=== PATIENT | male | born 1950 | race Caucasian/White ===

== ENCOUNTER → 2018-01-24 | Day surgery (SDC) | payer MEDICARE ==
[~2018-01-24] MED LIST: DEXILANT60 MG PO; FENTANYL CITRATE/PF 100MCG/2 ML INJ ONE; FLOMAX0.4 MG PO; LIDOCAINE HCL 2% LOCAL INJ 5 ML SDV VIAL INJ ONE; MIDAZOLAM HCL 2 MG/2 ML VIAL ONE; PROPOFOL IV EMULSION 10 MG/ML 50 ML VIAL IV ONE; ZOLPIDEM TARTRA10 MG PO
[2018-01-24 15:15] VITALS: BP 128/81
--- NOTE | 2018-01-24 15:39 | Operative Report ---
DATE OF PROCEDURE: January 24, 2018 REFERRING PHYSICIAN: Dr. Rikki Moreland. PROCEDURE PERFORMED: Esophagogastroduodenoscopy with esophageal dilatation and biopsies. INDICATIONS FOR EGD: Dysphagia, history of heartburn. MEDICATION: Patient was done under MAC. Please see anesthesiologist's note. PROCEDURE: With patient in the left lateral decubitus position, a flexible fiberoptic Olympus gastroscope was introduced into the esophagus under direct visualization without any difficulty. There were some patchy erythema noted in distal esophagus. Minute tongue of velvety-red mucosa was noted to extend proximally from the GE junction, that was biopsied to rule out Green's. There was a mild stricture noted at the GE junction that was dilated to a size 52-Nepali Lerma. The scope was then advanced with ease into the stomach traversing a small hiatal hernia. Mucosa overlying the antrum and the body revealed some patchy erythema and low-grade to moderate edema, and biopsies were obtained and sent to stain for H. pylori. Pylorus appeared to be of normal contour and shape, was intubated with ease, and the scope was advanced all the way to the 2nd portion of the duodenum. The scope was then withdrawn slowly. Mucosa overlying the proximal 2nd portion and the duodenal bulb appeared to be within normal limits. The scope was then withdrawn back into the stomach and retroflexed, and the mucosa overlying the fundus and the cardia appeared to be within normal limits. The scope was then straightened out and was subsequently withdrawn. Patient tolerated the procedure well. IMPRESSION 1. Distal esophagitis, mild. 2. Rule out Green's esophagus. 3. Esophageal stricture at gastroesophageal junction, dilated to size 52-Nepali Lerma. 4. Small sliding hiatal hernia. 5. Gastritis, biopsied. Biopsies sent to stain for Helicobacter pylori. PLAN: Follow up histology. Continue Dexilant 60 mg 1 p.o. a.c. b.i.d. Job#: [id number] LPA cc:RIKKI MORELAND MD
== END | disposition home or self-care (01) ==
LOC: OR 11:40
PROVIDERS: ATTEND Internal Medicine Gastroenterology
DX: K22.2 Esophageal obstruction (principal); K29.70 Gastritis, unspecified, without bleeding; K22.70 Barrett's esophagus without dysplasia; K20.9 Esophagitis, unspecified; K44.9 Diaphragmatic hernia without obstruction or gangrene; K21.9 Gastro-esophageal reflux disease without esophagitis; R49.9 Unspecified voice and resonance disorder; R05 Cough; I44.4 Left anterior fascicular block; Z01.810 Encounter for preprocedural cardiovascular examination; Z87.891 Personal history of nicotine dependence
CPT/HCPCS: 43239; 43450; 88305; 88312; 93005; J2001; J2250

== ENCOUNTER → 2018-07-25 | Day surgery (SDC) | payer MEDICARE ==
[2018-07-14 12:34] LABS: BASOPHILS # (AUTO) 0.1 (0.0-0.1); BASOPHILS % 0.6 % (0.0-1.0); EOSINOPHILS # (AUTO) 0.2 (0.0-0.4); EOSINOPHILS % 1.9 % (0.0-6.0); HEMOGLOBIN 14.5 g/dL (14.0-18.0); LYMPHOCYTES # (AUTO) 2.2 (1.0-3.2); LYMPHOCYTES % 22.6 % (18.0-39.1); MEAN CORPUSCULAR HGB CONC 35.4 g/dL (31-35); MEAN CORPUSCULAR VOLUME 93.4 fL (81-99); MONOCYTES # (AUTO) 0.5 (0.2-0.8); MONOCYTES % 4.7 % (4.4-11.3); NEUTROPHILS # (AUTO) 6.8 (2.1-6.9); NEUTROPHILS % 69.6 % (38.7-80.0); PLATELET COUNT 237 x10e3/uL (140-360); RED BLOOD COUNT 4.39 x10e6/uL (4.3-5.7); RED CELL DISTRIBUTION WIDTH 12.3 % (11.7-14.4)
[~2018-07-25] MED LIST changes: +ACETAMINOPHEN325 M1 PO; +FISH OIL 1,2001 EAC1 PO; +GLYCOPYRROLATE INJ 1MG/ 5 ML SYR ONE; -LIDOCAINE HCL 2% LOCAL INJ 5 ML SDV VIAL INJ ONE; +LUNESTA3 MG PO; +PROBIOTIC PO; -PROPOFOL IV EMULSION 10 MG/ML 50 ML VIAL IV ONE; +PROPOFOL IV EMULSION 10 MG/ML 50 ML VIAL ONE
--- OUTSIDE RECORDS SUMMARY | 2018-07-25 10:38 | XMS REPORT ---
Author Author Clifton Nieto Organization [employer] Address Unknown Phone Unavailable Care Team Providers Care Study Abroad Coordinator Name Role Phone Cilfton Nieto CP Unavailable Allergies, Adverse Reactions, Alerts Substance Reaction Event Type N.K.D.A. 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 95884038409 40 MG Active TAKE ONE CAPSULE BY MOUTH EVERY DAY Co Q [address] [facility] [address]68 60 MG Orally Once a day Active 1 capsule with a meal Analpram-HC [facility] [address]-04 1-2.5 % Rectal Three times a day Active 1 application to affected area as needed Zantac [facility] 62258057205 300 MG Once a day Active take 1 tablet by mouth at bedtime Tamsulosin HCl [facility] [address]-47 0.4 MG Orally Active not defined Viagra [facility] [address]-54 100 MG Active TAKE 1 TABLET BY MOUTH EVERY DAY NEEDED Esomeprazole Magnesium [facility] [address]-79 40 MG Orally Once a day Active [address] [facility] [address]-97 10 MG/20ML Intrathecal Active not defined Bromfed DM [facility] [address]-58 30-2-10 MG/5ML Orally every 6 hrs Mar 25, 2015 Active 10 ml as needed Meloxicam [facility] [address]-21 7.5 MG Orally Once a day Active [address] [facility] [address]-94 3 MG Orally once every night PRN Active 1 tablet Vital Signs Date/Time: November 24, 2016 BMI 27.40 Index Weight 191 lbs Height 70 in Cardiac Monitoring Heart Rate 95 /min Blood Pressure Diastolic 72 mm Hg Blood Pressure Systolic 110 mm Hg Results Name Result Date Reference Range Unit Abnormality Flag B12 Vitamin 1000MCG Summary Purpose [employer] Submission
--- OUTSIDE RECORDS SUMMARY | 2018-07-25 10:38 | XMS REPORT ---
Author Author Nina Recinos [facility] [employer] Address Unknown Phone Unavailable Care Team Providers Care Customer Retention Representative Name Role Phone Nina Recinos Unavailable Allergies, Adverse Reactions, Alerts Substance Reaction Event Type N.K.D.A. 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 Problem H/O asbestosis Z87.09 Active Problem Enlarged prostate N40.0 Active Problem History of ADHD Z86.59 Active Problem Pipe smoker F17.290 Active Medications Medication Code System Code Instructions Start Date End Date Status Dosage Esomeprazole Magnesium [facility] 34890804150 40 mg Orally Once a day Active 1 capsule Zantac [facility] [address]-56 300 MG Active TAKE 1 TABLET BY MOUTH AT BEDTIME Co Q 10 [facility] 89643104645 60 MG Orally Once a day Active 1 capsule with a meal Analpram-HC [facility] 97493409131 1-2.5 % Rectal Three times a day Active 1 application to affected area as needed Viagra [facility] 97338803451 100 MG Active TAKE 1 TABLET BY MOUTH EVERY DAY NEEDED Meloxicam [facility] 39271134968 7.5 MG Orally Once a day Active 1 tablet Baclofen [facility] 33323896968 10 MG/20ML Intrathecal Active not defined Tamsulosin HCl [facility] [address]-93 0.4 MG Orally Active not defined Bromfed DM [facility] 76767272451 30-2-10 MG/5ML Orally every 6 hrs Mar 25, 2015 Active 10 ml as needed Eszopiclone ND 65727143061 3 MG Orally once every night PRN Active 1 tablet Nexium [facility] 40480262132 40 MG Active TAKE ONE CAPSULE BY MOUTH EVERY DAY Results Name Result Date Reference Range Unit Abnormality Flag B12 Vitamin 1000MCG Summary Purpose [employer] Submission
--- OUTSIDE RECORDS SUMMARY | 2018-07-25 10:38 | XMS REPORT | Continuity of Care Document ---
Author Author [facility] Interface Address Unknown Phone Unavailable Problems Problem Status Onset Date Classification Date Reported Comments Source UNK Active 08/12/2015 [facility] Discharge Diagnosis: Urinary retention 08/10/2015 08/13/2015 [facility] Discharge Diagnosis: Mass of bladder 08/10/2015 08/13/2015 [facility] Discharge Diagnosis: Acute renal insufficiency 08/10/2015 08/13/2015 [facility] URINE COMPLICATIONS Active 08/10/2015 [facility] Low testosterone Active Problem 07/22/2018 [facility] Vitamin D deficiency Active Problem 07/22/2018 [facility] GERD Active Problem 07/22/2018 [facility] Essential hypertension Active Problem 07/22/2018 [facility] Hypogonadism in male Active Problem 07/22/2018 [facility] Green's esophagus with dysplasia Active Problem 07/22/2018 [facility] H/O asbestosis Active Problem 07/22/2018 [facility] Enlarged prostate Active Problem 07/22/2018 [facility] History of ADHD Active Problem 07/22/2018 [facility] Pipe smoker Active Problem 06/17/2018 [facility] Insomnia Active Diagnosis 05/21/2017 [facility] Dizzy Active Diagnosis 11/27/2016 [facility] Other fatigue Active Diagnosis 07/03/2017 [facility] Physical exam Active Diagnosis 11/27/2016 [facility] Other chronic pain Active Problem 07/22/2018 [facility] Insomnia, unspecified type Active Problem 07/22/2018 [facility] Anxiety Active Problem 07/22/2018 [facility] Body aches Active Diagnosis 02/10/2017 [facility] Right hand pain Active Diagnosis 02/10/2017 [facility] Acute pain of left shoulder Active Diagnosis 02/10/2017 [facility] Injury of head, initial encounter Active Diagnosis 02/10/2017 [facility] Bee allergy status Active Problem 07/22/2018 [facility] Chronic gastritis without bleeding, unspecified gastritis type Active Problem 07/22/2018 [facility] Hiatal hernia Active Problem 07/22/2018 [facility] Diverticulosis large intestine w/o perforation or abscess w/bleeding Active Problem 07/22/2018 [facility] Fatigue Active Diagnosis 10/14/2017 [facility] Hoarseness of voice Active Diagnosis 08/20/2017 [facility] Pain in left shoulder Active Diagnosis 07/03/2017 [facility] BMI 28.0-28.9,adult Active Diagnosis 07/03/2017 [facility] Bunion, right foot Active Diagnosis 10/12/2014 [facility] Keratotic lesion Active Diagnosis 10/12/2014 [facility] Bunion, left foot Active Diagnosis 10/12/2014 [facility] Acute nasopharyngitis Active Diagnosis 03/27/2015 [facility] Cough Active Diagnosis 07/21/2016 [facility] Hoarse Active Diagnosis 07/17/2018 [facility] Routine general medical examination at a health care facility Active Diagnosis 01/18/2018 [facility] Encounter for screening colonoscopy Active Diagnosis 01/18/2018 [facility] Neck mass Active Diagnosis 03/10/2016 [facility] URI with cough and congestion Active Diagnosis 07/17/2018 [facility] Acute non-recurrent maxillary sinusitis Active Diagnosis 07/21/2016 [facility] GERD (<span ID="[id number]">Confirmed</span>) Active Problem 08/13/2015 [facility] Hammer toe Active Problem 08/13/2015 [facility] Mass of foot Active Problem 08/13/2015 [facility] 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 [facility] ENLARGED PROSTATE WITH LOWER URINARY TRA Active [facility] Medications Medication Details Route Status Patient Instructions Ordering Provider Order Date Source Dexilant 1 capsule Orally Active 60 MG Orally once a day [facility] 01/25/2018 [facility] Dexilant 1 capsule Orally Active 60 MG Orally twice a day (bid) [facility] 01/25/2018 [facility] Dexilant 1 capsule Orally Active 60 MG Orally qd [facility] 11/24/2017 [facility] EPINEPHrine as directed Injection Active 0.3 MG/0.3ML Injection as directed [facility] 09/07/2017 [facility] Dexilant 1 capsule Orally Active 60 MG [facility] 08/11/2017 [facility] Carafate 1 tablet on an empty stomach before meals Orally Active 1 GM Orally four times a day PRN Trace 08/11/2017 [facility] HydrOXYzine HCl 1 tablet as needed Orally Active 10 mg Orally every 6-8 hrs for anxiety Trace 06/29/2017 [facility] Zanaflex 1 tablet as needed Orally Active 4 MG Orally once a day [facility] 02/09/2017 [facility] Cyclobenzaprine HCl 1 tablet as needed Orally Active 10 MG Orally once a day at night [facility] 02/08/2017 [facility] Naproxen 1 tablet as needed Orally Active 500 MG Orally twice a day Jorje 02/08/2017 [facility] Augmentin 1 tablet Orally Active 875-125 MG Orally every 12 hrs Jaime 07/16/2016 [facility] Zantac 1 tablet at bedtime Orally Active 300 MG Orally Once a day [place] 12/03/2015 [facility] tramadol hydrochloride 50 MG Oral Tablet 50 mg=1 tab, PO, BID, X 10 day, # 20 tab, 0 Refill(s) Active 08/10/2015 [facility] Tamsulosin hydrochloride 0.4 MG Oral Capsule [Flomax] 0.4 mg=1 cap, PO, Daily, # 10 cap, 0 Refill(s) Active 08/10/2015 [facility] ciprofloxacin 500 mg oral tablet 500 mg=1 tab, PO, Q12H, X 10 day, # 20 tab, 0 Refill(s) Active 08/10/2015 [facility] Morphine 4 mg, Route: IVP, Drug form: INJ, ONCE, Dosing Weight 86.364, kg, Priority: STAT, Start date: 08/10/15 12:55:00, Stop date: 08/10/15 12:55:00 Inactive 08/10/2015 [facility] Bromfed DM 10 ml as needed Orally Active 30-2-10 MG/5ML Orally every 6 hrs Jorje 03/25/[address] [facility] Bromfed DM 10 ml as needed Orally Active 30-2-10 MG/5ML Orally every 6 hrs Jorje 03/25/[address] [facility] Acetaminophen 325 MG / Hydrocodone Bitartrate 10 MG Oral Tablet [Nezperce 10/325] 1 tab, Route: PO, Drug Form: TAB, Dosing Weight 92.727, kg, ONCE, Start date: 11/15/14 9:30:00, Stop date: 11/15/14 9:30:00Notes: Do not exceed 4gm/day of acetaminophen. (Same as: Nezperce 325/10) Inactive 11/15/2014 [facility] Ondansetron 4 mg, Route: IVP, ONCE, Dosing Weight 92.727, kg, PRN Nausea & Vomiting, Start date: 11/15/14 9:30:00 Inactive 11/15/2014 [facility] Naloxone 0.04 mg, 0.1 mL, Route: IVP, Drug form: INJ, Q2MIN, Dosing Weight 92.727, kg, PRN Narcotic Reversal, Start date: 11/15/14 9:30:00, Duration: 8 doses or times, Stop date: Limited # of timesNotes: Same as Narcan Inactive 11/15/2014 [facility] Flumazenil 0.2 mg, 2 mL, Route: IVP, Drug form: INJ, PRN, Dosing Weight 92.727, kg, PRN Benzodiazepine Reversal, Initial dose, Start date: 11/15/14 9:30:00, Duration: 30 day, Stop date: 12/15/14 9:29:00Notes: ( Same as: Romazicon) Inactive 11/15/2014 [facility] Hydralazine 10 mg, 0.5 mL, Route: IVP, Drug form: INJ, Q20Min, Dosing Weight 92.727, kg, PRN Elevated BP, Start date: 11/15/14 9:30:00, Duration: 2 doses or times, Stop date: Limited # of timesNotes: (Same as: A presoline) Push over 5 minutes Inactive 11/15/2014 [facility] Hydromorphone 0.5 mg, 0.5 mL, Route: IVP, Drug form: INJ, Q5Min, Dosing Weight 92.727, kg, PRN Pain Score 7-10, Start date: 11/15/14 9:30:00, Duration: 4 doses or times, Stop date: Limited # of times Inactive 11/15/2014 [facility] Metoprolol 1 mg, 1 mL, Route: IVP, Drug form: INJ, Q5Min, Dosing Weight 92.727, kg, PRN Other -See Comment, Start date: 11/15/14 9:30:00, Duration: 5 doses or times, Stop date: Limited # of timesNotes: (Same as: Lopressor) Push over 2 minutes Inactive 11/15/2014 [facility] Oxycodone 5 mg, 1 tab, Route: PO, Drug form: TAB, Q4H, Dosing Weight 92.727, kg, PRN Pain Score 4-6, Start date: 11/15/14 9:30:00, Duration: 30 day, Stop date: 12/15/14 9:29:00Notes: (Same as: Roxicodone) Inactive 11/15/2014 [facility] Fentanyl 25 microgram, 0.5 mL, Route: IVP, Drug form: INJ, Q5Min, Dosing Weight 92.727, kg, PRN Pain Score 4-6, Start date: 11/15/14 9:30:00, Duration: 4 doses or times, Stop date: Limited # of timesNotes: (Same as: Sublimaze) Preservative free. Inactive 11/15/2014 [facility] Calcium Chloride 0.0014 MEQ/ML / Potassium Chloride 0.004 MEQ/ML / Sodium Chloride 0.103 MEQ/ML / Sodium Lactate 0.028 MEQ/ML Injectable Solution 1,000 mL, Rate: 25 ml/hr, Infuse over: 40 hr, Route: IV, Dosing Weight 92.727 kg, Total Volume: 1,000, Start date: 11/15/14 9:03:00, Duration: 30 day, Stop date: 12/15/14 9:02:00 Inactive 11/15/2014 [facility] Ancef 2 gm, Route: IVPB, ONCE, Dosing Weight 92.727, kg, Start date: 11/15/14 9:03:00, Duration: 1 doses or times, Stop date: 11/15/14 9:03:00 Inactive 11/15/2014 [facility] Nexium PO, Daily, 0 Refill(s) Active 11/14/2014 [facility] Viagra PO, PRN, 0 Refill(s) Active 11/14/2014 [facility] meloxicam PO, PRN, 0 Refill(s) Active 11/14/2014 [facility] Testosterone 0 Refill(s) Active 11/14/2014 [facility] Nexium 1 capsule Orally Active 40 mg Orally Once a day [facility] 10/31/[address] [facility] Eszopiclone 1 tablet Orally Active 3 MG Orally once every night PRN [facility] Nexium TAKE ONE CAPSULE BY MOUTH EVERY DAY NA Active 40 MG [facility] Co Q 10 1 capsule with a meal Orally Active 60 MG Orally Once a day [facility] Analpram-HC 1 application to affected area as needed Rectal Active 1-2.5 % Rectal Three times a day [facility] Zantac TAKE 1 TABLET BY MOUTH AT BEDTIME NA Active [address] [facility] Tamsulosin HCl not defined Orally Active 0.4 MG Orally [facility] Viagra TAKE 1 TABLET BY MOUTH EVERY DAY NEEDED NA Active [address] [facility] Esomeprazole Magnesium 1 capsule Orally Active 40 MG Orally Once a day [facility] Baclofen not defined Intrathecal Active 10 MG/20ML Intrathecal [facility] Meloxicam 1 tablet Orally Active 7.5 MG Orally Once a day [facility] Esomeprazole Magnesium 1 capsule Orally Active 40 mg Orally Once a day [facility] Zantac TAKE 1 TABLET BY MOUTH AT BEDTIME NA Active 300 MG [facility] Co Q 10 1 capsule with a meal Orally Active 60 MG Orally Once a day [facility] Analpram-HC 1 application to affected area as needed Rectal Active 1-2.5 % Rectal Three times a day [facility] Viagra TAKE 1 TABLET BY MOUTH EVERY DAY NEEDED NA Active 100 MG [facility] Meloxicam 1 tablet Orally Active 7.5 MG Orally Once a day [facility] Baclofen not defined Intrathecal Active 10 MG/20ML Intrathecal [facility] Eszopiclone 1 tablet Orally Active 3 MG Orally once every night PRN [facility] Carafate 1 tablet on an empty stomach before meals Orally Active 1 GM Orally four times a day PRN [facility] HydrOXYzine HCl 1 tablet as needed Orally Active 10 mg Orally every 6-8 hrs for anxiety [facility] Esomeprazole Magnesium 1 capsule Orally Active 40 mg Orally Once a day [facility] Testosterone Cypionate 1 ml Intramuscular Active 200 MG/ML Intramuscular [facility] Nexium 1 capsule Orally Active 40 mg Orally Once a day [facility] Tamsulosin HCl 1 capsule Orally Active 0.4 MG Orally Once a day [facility] Carafate 1 tablet on an empty stomach before meals Orally Active 1 GM Orally four times a day PRN [facility] Tamsulosin HCl Unknown Orally Active 0.[address] [facility] Testosterone Cypionate 1 ml Intramuscular Active 200 MG/ML Intramuscular every [address] [facility] Tamsulosin HCl Unknown Orally Active 0.4 MG Orally [facility] Allergies, Adverse Reactions, Alerts Substance Category Reaction Severity Reaction type Status Date Reported Comments Source N.K.D.A. Adverse Reaction Info Not Available Adverse Reaction Active 07/09/[address] [facility] Immunizations Immunization Date Given Site Status Last Updated Comments Source Results Order Name Results Value Reference Range Date Interpretation Comments Source ELECTROLYTES Potassium Lvl 4.0 meq/L 3.5 - 5.1 08/10/2015 [facility] ELECTROLYTES Chloride Lvl 101 meq/L 95 - 109 08/10/2015 [facility] ELECTROLYTES CO2 27 meq/L 24 - 32 08/10/2015 [facility] ELECTROLYTES Sodium Lvl 138 meq/L 135 - 145 08/10/2015 [facility] ELECTROLYTES Calcium Lvl 9.1 mg/dL 8.5 - 10.5 08/10/2015 [facility] ELECTROLYTES eGFR 39 mL/min/1.73m2 08/10/2015 Result Comment: The eGFR is calculated using the CKD-EPI formula. In most young, healthy individuals the eGFR will be >90 mL/min/1.73m2. The eGFR declines with age. An eGFR of 60-89 may be normal in some populations, particularly the elderly, for whom the CKD-EPI formula has not been extensively validated. Use of the eGFR is not recommended in the following populations: Individuals with unstable creatinine concentrations, including patients and those with serious co-morbid conditions. Patients with extremes in muscle mass or diet. The data above are obtained from the National Kidney Disease Education Program (NKDEP) which additionally recommends that when the eGFR is used in patients with extremes of body mass index for purposes of drug dosing, the eGFR should be multiplied by the estimated BMI. [facility] ELECTROLYTES Glucose Lvl 114 mg/dL 70 - 99 08/10/2015 [facility] ELECTROLYTES BUN 11 mg/dL 7 - 22 08/10/2015 [facility] Creatinine Lvl 1.77 mg/dL 0.50 - 1.40 08/10/2015 [facility] ELECTROLYTES AGAP 14.0 meq/L 10.0 - 20.0 08/10/2015 [facility] HEMATOLOGY Lymphocytes # 1.1 K/CMM 1.0 - 5.5 08/10/[address] [facility] Segs-Bands # 8.8 K/CMM 1.5 - 8.1 08/10/[address] [facility] Eosinophils # 0.3 K/CMM 0.0 - 0.5 08/10/2015 [facility] HEMATOLOGY Basophils 0.3 % 0.0 - 1.0 08/10/2015 [facility] HEMATOLOGY Segs 80.7 % 45.0 - 75.0 08/10/2015 [facility] HEMATOLOGY Monocytes # 0.7 K/CMM 0.0 - 0.8 08/10/[address] [facility] Lymphocytes 10.4 % 20.0 - 40.0 08/10/2015 [facility] HEMATOLOGY Monocytes 6.1 % 2.0 - 12.0 08/10/2015 [facility] HEMATOLOGY Eosinophils 2.5 % 0.0 - 4.0 08/10/2015 [facility] HEMATOLOGY Platelet 177 K/CMM 133 - 450 08/10/2015 [facility] HEMATOLOGY MPV 8.6 fL 7.4 - 10.4 08/10/2015 [facility] HEMATOLOGY MCHC 34.6 g/dL 32.0 - 36.0 08/10/2015 [facility] HEMATOLOGY RDW 12.3 % 11.5 - 14.5 08/10/2015 [facility] HEMATOLOGY Hgb 14.7 g/dL 14.0 - 18.0 08/10/2015 [facility] HEMATOLOGY Hct 42.5 % 42.0 - 54.0 08/10/2015 [facility] HEMATOLOGY MCV 96.2 fL 80.0 - 94.0 08/10/2015 [facility] HEMATOLOGY WBC 10.9 K/CMM 3.7 - 10.4 08/10/2015 [facility] HEMATOLOGY RBC 4.41 M/CMM 4.70 - 6.10 08/10/[address] [facility] MCH 33.3 pg 27.0 - 31.0 08/10/2015 [facility] URINE AND STOOL UA Sq Epi None Seen 08/10/2015 [facility] URINE AND STOOL UA Urobilinogen <=1.0 mg/dL 0.1 - 1.0 08/10/2015 [facility] URINE AND STOOL UA Color Ltyellow 08/10/2015 [facility] URINE AND STOOL UA Mucus Few /LPF None Seen /LPF 08/10/2015 [facility] URINE AND STOOL UA RBC 5 /HPF 0 - 2 08/10/2015 [facility] URINE AND STOOL UA Spec Grav 1.006 <=1.030 08/10/2015 [facility] URINE AND STOOL UA Turbidity Clear (08/10/15 9:28 AM) Clear 08/10/2015 [facility] URINE AND STOOL UA Leuk Est Negative (08/10/15 9:28 AM) Negative 08/10/2015 [facility] URINE AND STOOL UA Nitrite Negative (08/10/15 9:28 AM) Negative 08/10/2015 [facility] URINE AND STOOL UA Blood Moderate *ABN* (08/10/15 9:28 AM) Negative 08/10/2015 [facility] URINE AND STOOL UA WBC null 0 - 5 08/10/2015 [facility] URINE AND STOOL UA Ketones Trace mg/dL Negative mg/dL 08/10/2015 [facility] URINE AND STOOL UA Glucose Negative mg/dL Negative mg/dL 08/10/2015 [facility] URINE AND STOOL UA Protein Negative mg/dL Negative mg/dL 08/10/2015 [facility] URINE AND STOOL UA pH 7.0 5.0 - 8.0 08/10/2015 [facility] URINE AND STOOL UA Bili Negative *NA* (08/10/15 9:28 AM) Negative 08/10/2015 [facility] Abdomen 2 views DX Abdomen 2 views DX Abdomen one view: The gas pattern is within normal limits. There is no evidence of pneumoperitoneum. Phleboliths are seen in the pelvis. It would be difficult to completely rule out distal ureteral stones. There are no other significant calcifications. There are no significant osseous abnormalities. IMPRESSION: No acute radiographic abnormality of the abdomen. [id number] 2 views 08/10/2015 - - Read by: Cuba Guaman MD Dictated Date/time: 08/10/15 11:21 Electronically Signed by: Cuba Guaman MD 08/10/15 11:22 FINAL REPORT [facility] Bladder US Bladder US BLADDER ULTRASOUND: The bladder is distended with approximately 865 mL volume. The bladder wall is thin without significant mural thickening. There is a 3.9 cm intraluminal polypoid mass involving the right lateral posterior wall. No other intraluminal filling defects are demonstrated. The prostate is not visualized. IMPRESSION: 1. Bladder distention. 2. Polypoid mass in the bladder. Transitional cell carcinoma is the most likely etiology. Cystoscopic evaluation is recommended if this is not a previously known finding. SL 13 08/10/2015 - - Read by: Cuba Guaman MD Dictated Date/time: 08/10/15 10:22 Electronically Signed by: Cuba Guaman MD 08/10/15 10:27 FINAL REPORT [facility] Vital Signs Vital Sign Value Date Comments Source Weight 189 07/09/2018 [facility] Height 70 07/09/2018 [facility] Temperature Oral (F) 98.1 F 07/09/2018 [facility] Heart Rate 68 07/09/2018 [facility] Diastolic (mm Hg) 60 07/09/2018 [facility] Systolic (mm Hg) 120 07/09/2018 [facility] Weight 193 01/12/2018 [facility] Height 70 01/12/2018 [facility] Heart Rate 77 01/12/2018 [facility] Diastolic (mm Hg) 68 01/12/2018 [facility] Systolic (mm Hg) 120 01/12/2018 [facility] Weight 193 09/07/2017 [facility] Height 70 09/07/2017 [facility] Heart Rate 76 09/07/2017 [facility] Diastolic (mm Hg) 70 09/07/2017 [facility] Systolic (mm Hg) 110 09/07/2017 [facility] Weight 192 08/11/2017 [facility] Height 70 08/11/2017 [facility] Heart Rate 68 08/11/2017 [facility] Diastolic (mm Hg) 74 08/11/2017 [facility] Systolic (mm Hg) 118 08/11/2017 [facility] Weight 197 06/29/2017 [facility] Height 70 06/29/2017 [facility] Heart Rate 74 06/29/2017 [facility] Diastolic (mm Hg) 80 06/29/2017 [facility] Systolic (mm Hg) 120 06/29/2017 [facility] Weight 193 02/08/2017 [facility] Height 70 02/08/2017 [facility] Heart Rate 78 02/08/2017 [facility] Diastolic (mm Hg) 94 02/08/2017 [facility] Systolic (mm Hg) 142 02/08/2017 [facility] Weight 191 11/24/2016 [facility] Height 70 11/24/2016 [facility] Heart Rate 95 11/24/2016 [facility] Diastolic (mm Hg) 72 11/24/2016 [facility] Systolic (mm Hg) 110 11/24/2016 [facility] Weight 194 07/16/2016 [facility] Height 70 07/16/2016 [facility] Heart Rate 78 07/16/2016 [facility] Diastolic (mm Hg) 78 07/16/2016 [facility] Systolic (mm Hg) 144 07/16/2016 [facility] Weight 195 03/05/2016 [facility] Height 70 03/05/2016 [facility] Heart Rate 71 03/05/2016 [facility] Diastolic (mm Hg) 70 03/05/2016 [facility] Systolic (mm Hg) 115 03/05/2016 [facility] Weight 192 12/03/2015 [facility] Height 70 12/03/2015 [facility] Diastolic (mm Hg) 72 12/03/2015 [facility] Systolic (mm Hg) 110 12/03/2015 [facility] Respitory Rate 16 08/10/2015 [facility] Heart Rate 98 08/10/2015 [facility] Temperature Oral (F) 98.2 F 08/10/2015 [facility] Systolic (mm Hg) 144 08/10/2015 [facility] Diastolic (mm Hg) 92 08/10/2015 [facility] Systolic (mm Hg) 165 08/10/2015 [facility] Diastolic (mm Hg) 99 08/10/2015 [facility] Respitory Rate 16 08/10/2015 [facility] Heart Rate 101 08/10/2015 [facility] Temperature Oral (F) 98.2 F 08/10/2015 [facility] Systolic (mm Hg) 157 08/10/2015 [facility] Diastolic (mm Hg) 106 08/10/2015 [facility] Respitory Rate 16 08/10/2015 [facility] Heart Rate 117 08/10/2015 [facility] BMI Calculated 26.56 08/10/2015 [facility] Weight 86.364 08/10/2015 [facility] Height 180.34 cm 08/10/2015 [facility] Weight 198 03/25/2015 [facility] Height 70 03/25/2015 [facility] Temperature Oral (F) 98.5 F 03/25/2015 [facility] Heart Rate 72 03/25/2015 [facility] Diastolic (mm Hg) 70 03/25/2015 [facility] Systolic (mm Hg) 122 03/25/2015 [facility] Systolic (mm Hg) 110 11/15/2014 [facility] Diastolic (mm Hg) 70 11/15/2014 [facility] Systolic (mm Hg) 115 11/15/2014 [facility] Diastolic (mm Hg) 66 11/15/2014 [facility] Systolic (mm Hg) 94 11/15/2014 [facility] Diastolic (mm Hg) 54 11/15/2014 [facility] Respitory Rate 13 11/15/2014 [facility] Respitory Rate 16 11/15/2014 [facility] Respitory Rate 16 11/15/2014 [facility] Temperature Oral (F) 97.3 F 11/14/2014 [facility] Heart Rate 75 11/14/2014 [facility] BMI Calculated 28.51 11/14/2014 [facility] Weight 92.727 11/14/2014 [facility] Height 180.34 cm 11/14/2014 [facility] Weight 200 10/11/2014 [facility] Height 70 10/11/2014 [facility] Heart Rate 67 10/11/2014 [facility] Diastolic (mm Hg) 64 10/11/2014 [facility] Systolic (mm Hg) 118 10/11/2014 [facility] Encounters Location Location Details Encounter Type Encounter Number Reason For Visit Attending Provider ADM Date DC Date Status Source 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 PHYSICAL & Pre Op Clearance for foot surgery(Dr Ceballos) [id number] 10/31/2014 10/31/[address] [facility] PHYSICAL & Pre Op Clearance for foot surgery(Dr Ceballos) [id number] 10/31/2014 10/31/[address] [facility] PHYSICAL & Pre Op Clearance for foot surgery(Dr Ceballos) [id number] 10/31/2014 10/31/[address] [facility] PHYSICAL & Pre Op Clearance for foot surgery(Dr Ceballos) [id number] 10/31/2014 10/31/[address] [facility] PHYSICAL & Pre Op Clearance for foot surgery(Dr Ceballos) [id number] 10/31/2014 10/31/[address] [facility] PHYSICAL & Pre Op Clearance for foot surgery(Dr Ceballos) [id number] 10/31/2014 10/31/[address] [facility] PHYSICAL & Pre Op Clearance for foot surgery(Dr Ceballos) [id number] 10/31/2014 10/31/[address] [facility] PHYSICAL & Pre Op Clearance for foot surgery(Dr Ceballos) [id number] 10/31/2014 10/31/[address] [facility] PHYSICAL & Pre Op Clearance for foot surgery(Dr Ceballos) [id number] 10/31/2014 10/31/[address] [facility] PHYSICAL & Pre Op Clearance for foot surgery(Dr Ceballos) [id number] 10/31/2014 10/31/[address] [facility] PHYSICAL & Pre Op Clearance for foot surgery(Dr Ceballos) [id number] 10/31/2014 10/31/2014 [facility] PHYSICAL & Pre Op Clearance for foot surgery(Dr Ceballos) [id number] 10/31/2014 10/31/2014 [facility] Unknown [id number] 11/01/2014 11/01/2014 [facility] Unknown [id number] 11/01/2014 11/01/2014 [facility] Unknown [id number] 11/01/2014 11/01/2014 [facility] Unknown [id number] 11/01/2014 11/01/2014 [facility] Unknown [id number] 11/01/2014 11/01/2014 [facility] Unknown [id number] 11/01/2014 11/01/2014 [facility] Unknown [id number] 11/01/2014 11/01/2014 [facility] Unknown [id number] 11/01/2014 11/01/2014 [facility] Unknown [id number] 11/01/2014 11/01/2014 [facility] Unknown [id number] 11/01/2014 11/01/2014 [facility] Unknown [id number] 11/01/2014 11/01/2014 [facility] Unknown [id number] 11/01/2014 11/01/2014 [facility] [id number] [facility] 11/15/2014 11/15/2014 [facility] SICK [id number] 03/25/2015 03/25/2015 [facility] SICK [id number] 03/25/2015 03/25/2015 [facility] SICK [id number] 03/25/2015 03/25/2015 [facility] SICK [id number] 03/25/2015 03/25/2015 [facility] SICK [id number] 03/25/2015 03/25/2015 [facility] SICK [id number] 03/25/2015 03/25/2015 [facility] SICK [id number] 03/25/2015 03/25/2015 [facility] [id number] 03/25/2015 03/25/2015 [facility] SICK [id number] 03/25/2015 03/25/2015 [facility] [id number] 03/25/2015 03/25/2015 [facility] RAUDEL [id number] 03/25/2015 03/25/2015 [facility] [id number] 03/25/2015 03/25/2015 [facility] Refill [id number] 03/28/2015 03/28/2015 [facility] Refill [id number] 03/28/2015 03/28/2015 [facility] Refill [id number] 03/28/2015 03/28/2015 [facility] Refill [id number] 03/28/2015 03/28/2015 [facility] Refill [id number] 03/28/2015 03/28/2015 [facility] Refill [id number] 03/28/2015 03/28/2015 [facility] Refill [id number] 03/28/2015 03/28/2015 [facility] Refill [id number] 03/28/2015 03/28/2015 [facility] Refill [id number] 03/28/2015 03/28/2015 [facility] Refill [id number] 03/28/2015 03/28/2015 [facility] Refill [id number] 03/28/2015 03/28/2015 [facility] Unknown [id number] 04/10/2015 04/10/2015 [facility] Unknown [id number] 04/10/2015 04/10/2015 [facility] Unknown [id number] 04/10/2015 04/10/2015 [facility] Unknown [id number] 04/10/2015 04/10/2015 [facility] Unknown [id number] 04/10/2015 04/10/2015 [facility] Unknown [id number] 04/10/2015 04/10/2015 [facility] Unknown [id number] 04/10/2015 04/10/2015 [facility] Unknown [id number] 04/10/2015 04/10/2015 [facility] Unknown [id number] 04/10/2015 04/10/2015 [facility] Unknown [id number] 04/10/2015 04/10/2015 [facility] [id number] Charlie Smith 08/10/2015 08/10/2015 [facility] PHYSICAL [id number] 12/03/2015 12/03/2015 [facility] PHYSICAL [id number] 12/03/2015 12/03/2015 [facility] PHYSICAL [id number] 12/03/2015 12/03/2015 [facility] PHYSICAL [id number] 12/03/2015 12/03/2015 [facility] PHYSICAL [id number] 12/03/2015 12/03/2015 [facility] PHYSICAL [id number] 12/03/2015 12/03/2015 [facility] PHYSICAL [id number] 12/03/2015 12/03/2015 [facility] PHYSICAL [id number] 12/03/2015 12/03/2015 [facility] PHYSICAL [id number] 12/03/2015 12/03/2015 [facility] bump on the neck [id number] 03/05/2016 03/05/[address] [facility] bump on the neck [id number] 03/05/2016 03/05/[address] [facility] bump on the neck [id number] 03/05/2016 03/05/2016 [facility] bump on the neck [id number] 03/05/2016 03/05/2016 [facility] bump on the neck [id number] 03/05/2016 03/05/[address] [facility] bump on the neck [id number] 03/05/2016 03/05/2016 [facility] bump on the neck [id number] 03/05/2016 03/05/2016 [facility] bump on the neck [id number] 03/05/2016 03/05/2016 [facility] Unknown [id number] 03/09/2016 03/09/2016 [facility] Unknown [id number] 03/09/2016 03/09/2016 [facility] Unknown [id number] 03/09/2016 03/09/2016 [facility] Unknown [id number] 03/09/2016 03/09/2016 [facility] Unknown [id number] 03/09/2016 03/09/2016 [facility] Unknown [id number] 03/09/2016 03/09/2016 [facility] Unknown [id number] 03/09/2016 03/09/2016 [facility] Unknown [id number] 03/18/2016 03/18/2016 [facility] Unknown [id number] 03/18/2016 03/18/2016 [facility] Unknown [id number] 03/18/2016 03/18/2016 [facility] Unknown [id number] 03/18/2016 03/18/2016 [facility] Unknown [id number] 03/18/2016 03/18/2016 [facility] Unknown [id number] 03/18/2016 03/18/2016 [facility] Refill [id number] 05/01/2016 05/01/2016 [facility] Refill [id number] 05/01/2016 05/01/2016 [facility] Refill [id number] 05/01/2016 05/01/2016 [facility] Refill [id number] 05/01/2016 05/01/2016 [facility] Refill [id number] 05/01/2016 05/01/2016 [facility] RF [id number] 06/10/2016 06/10/2016 [facility] RF [id number] 06/10/2016 06/10/2016 [facility] RF [id number] 06/10/2016 06/10/2016 [facility] RF [id number] 06/10/2016 06/10/2016 [facility] Unknown [id number] 06/12/2016 06/12/2016 [facility] Unknown [id number] 06/12/2016 06/12/2016 [facility] Unknown [id number] 06/12/2016 06/12/2016 [facility] Unknown [id number] 07/14/2016 07/14/2016 [facility] Unknown [id number] 07/14/2016 07/14/2016 [facility] sinus infection [id number] 07/16/2016 07/16/[address] [facility] Procedures Procedure Code Date Perfomer Comments Source Cervical spinal fusion<sup>1</sup> 89539581 1999 [facility] Foot joint [place]80476 [place] [facility] 14891295 [place] Prostatectomy 00055397 [facility] Shoulder joint operations 442367846 [facility] Repair of rotator cuff of shoulder 28023130 [facility]
--- OUTSIDE RECORDS SUMMARY | 2018-07-25 10:38 | XMS REPORT ---
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
--- OUTSIDE RECORDS SUMMARY | 2018-07-25 10:38 | XMS REPORT ---
Author Author Clifton Nieto Organization e[employer]Works Address Unknown Phone Unavailable Care Team Providers Care Pattern Carrier Name Role Phone Clifton Nieto CP Unavailable Allergies No Known Allergies Problems Problem Type Condition Code Onset Dates Condition Status Assessment Insomnia G47.00 Active Problem Pipe smoker F17.290 Active Problem Low testosterone E29.1 Active Problem Hypogonadism in male E29.1 Active Problem Vitamin D deficiency E55.9 Active Problem Essential hypertension I10 Active Problem Enlarged prostate N40.0 Active Problem H/O asbestosis Z87.09 Active Problem GERD (gastroesophageal reflux disease) K21.9 Active Problem History of ADHD Z86.59 Active Medications Medication Code System Code Instructions Start Date End Date Status Dosage Eszopiclone [facility] [address]-49 3 MG Orally once every night PRN Active 1 tablet Results No Known Results Summary Purpose eClinicalWorks Submission
--- OUTSIDE RECORDS SUMMARY | 2018-07-25 10:38 | XMS REPORT ---
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
--- OUTSIDE RECORDS SUMMARY | 2018-07-25 10:38 | XMS REPORT ---
Author Author Clifton Nieto Organization [employer] Address Unknown Phone Unavailable Care Team Providers Care Wood Pole Treater Name Role Phone Clifton Nieto CP Unavailable [...] Start Date End Date Status Dosage Eszopiclone [facility] [address]-18 3 MG Orally once every night PRN Active 1 tablet Results No Known Results Summary Purpose eClinicalWorks Submission
--- OUTSIDE RECORDS SUMMARY | 2018-07-25 10:39 | XMS REPORT ---
Author Author Nina Recinos [facility] eClinical[employer] Address Unknown Phone Unavailable Care Team Providers Care Arc Furnace Operator Name Role Phone Nina Recinos Unavailable Allergies, [...] Instructions Start Date End Date Status Dosage Zantac [facility] [address]-74 300 MG Active TAKE 1 TABLET BY MOUTH AT BEDTIME Meloxicam [facility] 85726725983 7.5 MG Orally Once a day Active 1 tablet Co Q 10 [facility] 99713660010 60 MG Orally Once a day Active 1 capsule with a meal Analpram-HC [facility] 15364468628 1-2.5 % Rectal Three times a day Active 1 application to affected area as needed Esomeprazole Magnesium [facility] 66375768760 40 mg Orally Once a day Active 1 capsule Viagra [facility] 08267498012 100 MG Active TAKE 1 TABLET BY MOUTH EVERY DAY NEEDED Tamsulosin HCl [facility] [address]-77 0.4 MG Orally Active not defined Baclofen [facility] 86482208585 10 MG/20ML Intrathecal Active not defined Bromfed DM [facility] 78702238224 30-2-10 MG/5ML Orally every 6 hrs Mar 25, 2015 Active 10 ml as needed Eszopiclone [facility] 80013956101 3 MG Orally once every night PRN Active 1 tablet Nexium [facility] 62059849954 40 MG Active TAKE ONE CAPSULE BY MOUTH EVERY DAY Results Name Result Date Reference Range Unit Abnormality Flag ADMIN THER/PROPH/DIAG INJ, SC/IM B12 Vitamin 1000MCG Summary Purpose eClinicalWorks Submission
--- OUTSIDE RECORDS SUMMARY | 2018-07-25 10:39 | XMS REPORT ---
Author Author Clifton Nieto Organization [employer] Address Unknown Phone Unavailable Care Team Providers Care Project Financial Analyst Name Role Phone Clifton Nieto CP Unavailable Allergies No Known Allergies Problems Problem Type Condition Code Onset Dates Condition Status Problem GERD (gastroesophageal reflux disease) K21.9 Active Problem Enlarged prostate N40.0 Active Problem Vitamin D deficiency E55.9 Active Problem Insomnia, unspecified type G47.00 Active Problem Other chronic pain G89.29 Active Problem Bee allergy status Z91.030 Active Problem Essential hypertension I10 Active Problem Hypogonadism in male E29.1 Active Problem Anxiety F41.9 Active Problem 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
--- OUTSIDE RECORDS SUMMARY | 2018-07-25 10:39 | XMS REPORT ---
Author Author Melanie Moreland [facility] eClinicalWorks Address Unknown Phone Unavailable Care Team Providers Care Plate Put In Worker Name Role Phone Melanie Moreland CP Unavailable Allergies No Known Allergies Problems Problem Type Condition Code Onset Dates Condition Status Problem GERD (gastroesophageal reflux disease) K21.9 Active Problem Enlarged prostate N40.0 Active Problem Vitamin D deficiency E55.9 Active Problem Insomnia, unspecified type G47.00 Active Problem Anxiety F41.9 Active Problem Bee allergy status Z91.030 Active Problem Essential hypertension I10 Active Problem Hypogonadism in male E29.1 Active Problem Other chronic pain G89.29 Active Problem 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
--- OUTSIDE RECORDS SUMMARY | 2018-07-25 10:39 | XMS REPORT ---
Author Author Melanie Moreland Organization [employer] Address Unknown Phone Unavailable Care Team Providers Care Client Care Manager Name Role Phone Melanie Moreland CP Unavailable [...] Date End Date Status Dosage Esomeprazole Magnesium [facility] 65965076608 40 mg Orally Once a day Active 1 capsule Results No Known Results Summary Purpose eClinicalWorks Submission
--- OUTSIDE RECORDS SUMMARY | 2018-07-25 10:39 | XMS REPORT ---
Author Author Clifton Nieto Organization [employer] Address Unknown Phone Unavailable Care Team Providers Care Freight Booker Name Role Phone Clifton Niteo CP Unavailable Allergies, Adverse Reactions, Alerts Substance Reaction Event Type N.K.D.A. 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 Active Problem Essential hypertension I10 Active Assessment Pain in left shoulder M25.512 Active Assessment Other chronic pain G89.29 Active Assessment GERD (gastroesophageal reflux disease) K21.9 Active Assessment BMI 28.0-28.9,adult Z68.28 Active Assessment Other fatigue R53.83 Active Problem Low testosterone E29.1 Active Assessment Insomnia, unspecified type G47.00 Active Problem GERD (gastroesophageal reflux disease) K21.9 Active Assessment Anxiety F41.9 Active Problem Vitamin D deficiency E55.9 Active Medications Medication Code System Code Instructions Start Date End Date Status Dosage Viagra ND 59636987428 100 MG Active TAKE 1 TABLET BY MOUTH EVERY DAY NEEDED HydrOXYzine HCl ND 97956985406 10 mg Orally every 6-8 hrs for anxiety Jun 29, 2017 Active 1 tablet as needed Zantac ND 34588744368 300 MG Active TAKE 1 TABLET BY MOUTH AT BEDTIME Nexium ND 58631641424 40 MG Active TAKE ONE CAPSULE BY MOUTH EVERY DAY Eszopiclone ND 50431512142 3 MG Orally once every night PRN Active 1 tablet Esomeprazole Magnesium ND 36956252031 40 mg Orally Once a day Active 1 capsule Vital Signs Date/Time: Jun 29, 2017 BMI 28.26 Index Weight 197 lbs Height 70 in Cardiac Monitoring Heart Rate 74 /min Blood Pressure Diastolic 80 mm Hg Blood Pressure Systolic 120 mm Hg Results No Known Results Summary Purpose eClinicalWorks Submission
--- OUTSIDE RECORDS SUMMARY | 2018-07-25 10:39 | XMS REPORT ---
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
--- OUTSIDE RECORDS SUMMARY | 2018-07-25 10:39 | XMS REPORT ---
Author Author Melanie Moreland Organization [employer] Address Unknown Phone Unavailable Care Team Providers Care Mill Feeder Name Role Phone Melanie Moreland CP Unavailable [...] Z86.59 Active Problem H/O asbestosis Z87.09 Active Assessment Fatigue R53.83 Active Problem Pipe smoker F17.290 Active Medications Medication Code System Code Instructions Start Date End Date Status Dosage Eszopiclone [facility] 84195723876 3 MG Orally once every night PRN Active 1 tablet Dexilant [facility] 77195825356 60 MG Orally Once a day August 11, 2017 Active 1 capsule Carafate [facility] 62372503711 1 GM Orally four times a day PRN Active 1 tablet on an empty stomach before meals Viagra [facility] 16918330249 100 MG Active TAKE 1 TABLET BY MOUTH EVERY DAY NEEDED Zantac [facility] 50939417742 300 MG Active TAKE 1 TABLET BY MOUTH AT BEDTIME EPINEPHrine ND 34259602733 0.3 MG/0.3ML Injection as directed September 07, 2017 Active as directed HydrOXYzine HCl ND 61101022092 10 mg Orally every 6-8 hrs for anxiety Active 1 tablet as needed Results Name Result Date Reference Range Unit Abnormality Flag B12 Vitamin 1000MCG Summary Purpose eClinicalWorks Submission
--- OUTSIDE RECORDS SUMMARY | 2018-07-25 10:39 | XMS REPORT ---
Author Author Melanie Moreland Organization [employer] Address Unknown Phone Unavailable Care Team Providers Care Maintenance Clerk Name Role Phone Melanie Moreland CP Unavailable [...]
--- OUTSIDE RECORDS SUMMARY | 2018-07-25 10:39 | XMS REPORT ---
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
--- OUTSIDE RECORDS SUMMARY | 2018-07-25 10:39 | XMS REPORT ---
Author Author Clifton Nieto Organization [employer] Address Unknown Phone Unavailable Care Team Providers Care Contamination Consultant Name Role Phone Clifton Nieto CP Unavailable Allergies, Adverse Reactions, Alerts Substance Reaction Event Type N.K.D.A. 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 Active Assessment URI with cough and congestion J06.9 Active Assessment 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 Active Assessment GERD (gastroesophageal reflux disease) K21.9 Active Problem Diverticulosis large intestine w/o perforation or abscess w/bleeding K57.31 Active Problem Low testosterone E29.1 Active Problem Chronic gastritis without bleeding, unspecified gastritis type K29.50 Active Problem History of ADHD Z86.59 Active Problem Hiatal hernia K44.9 Active Problem H/O asbestosis Z87.09 Active Medications Medication Code System Code Instructions Start Date End Date Status Dosage Tamsulosin HCl ND 03475104189 0.4 MG Orally Once a day Active 1 capsule Zantac ND 60725367177 300 MG Active TAKE 1 TABLET BY MOUTH AT BEDTIME Eszopiclone ND 23832160465 3 MG Orally once every night PRN Active 1 tablet Viagra ND 97416285393 100 MG Active TAKE 1 TABLET BY MOUTH EVERY DAY NEEDED Carafate ND 36594756564 1 GM Orally four times a day PRN Active 1 tablet on an empty stomach before meals Dexilant [facility] [address]-19 60 MG Orally twice a day (bid) Jan 25, 2018 Active 1 capsule EPINEPHrine [facility] 26049957058 0.3 MG/0.3ML Injection as directed September 07, 2017 Active as directed HydrOXYzine HCl [facility] 93944917318 10 mg Orally every 6-8 hrs for anxiety Active 1 tablet as needed Vital Signs Date/Time: Jul 09, 2018 BMI 27.12 Index Weight 189 lbs Height 70 in Temperature 98.1 F Cardiac Monitoring Heart Rate 68 /min Blood Pressure Diastolic 60 mm Hg Blood Pressure Systolic 120 mm Hg Results Name Result Date Reference Range Unit Abnormality Flag DECADRON 1MGx4 Summary Purpose eClinicalWorks Submission
--- OUTSIDE RECORDS SUMMARY | 2018-07-25 10:39 | XMS REPORT ---
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
--- OUTSIDE RECORDS SUMMARY | 2018-07-25 10:39 | XMS REPORT ---
Author Author Melanie Moreland [facility] eClinicalWorks Address Unknown Phone Unavailable Care Team Providers Care Drafting Clerk Name Role Phone Melanie Moreland CP [...]
--- OUTSIDE RECORDS SUMMARY | 2018-07-25 10:39 | XMS REPORT ---
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 Active Problem Low testosterone E29.1 Active Problem GERD (gastroesophageal reflux disease) K21.9 Active Assessment Hoarseness of voice R49.0 Active Problem Vitamin D deficiency E55.9 Active Medications Medication Code System Code Instructions Start Date End Date Status Dosage Eszopiclone [facility] 22447596517 3 MG Orally once every night PRN Active 1 tablet Zantac ND 48992642140 300 MG Active TAKE 1 TABLET BY MOUTH AT BEDTIME Nexium ND 64921872753 40 MG Inactive TAKE ONE CAPSULE BY MOUTH EVERY DAY Esomeprazole Magnesium ND 71374308540 40 mg Orally Once a day Inactive 1 capsule Carafate ND 99358614029 1 GM Orally four times a day PRN August 11, 2017 November 09, 2017 Active 1 tablet on an empty stomach before meals Dexilant [facility] 35113017420 60 MG Orally Once a day August 11, 2017 Active 1 capsule HydrOXYzine HCl ND 39500427127 10 mg Orally every 6-8 hrs for anxiety Jun 29, 2017 Active 1 tablet as needed Viagra ND 22010176156 100 MG Active TAKE 1 TABLET BY MOUTH EVERY DAY NEEDED Vital Signs Date/Time: August 11, 2017 BMI 27.55 Index Weight 192 lbs Height 70 in Cardiac Monitoring Heart Rate 68 /min Blood Pressure Diastolic 74 mm Hg Blood Pressure Systolic 118 mm Hg Results No Known Results Summary Purpose eClinicalWorks Submission
--- OUTSIDE RECORDS SUMMARY | 2018-07-25 10:39 | XMS REPORT ---
Author Author Clifton Nieto Organization eClinicalWorks Address Unknown Phone Unavailable Care Team Providers Care Shingle Weaver Name Role Phone Clifton Nieto CP Unavailable Allergies, Adverse Reactions, Alerts Substance Reaction Event Type N.K.D.A. Info Not Available Non Drug Allergy Problems Problem Type Condition Code Onset Dates Condition Status Assessment Vitamin D deficiency E55.9 Active Assessment Low testosterone E29.1 Active Assessment Enlarged prostate N40.0 Active Problem Pipe smoker F17.290 Active Assessment Insomnia, unspecified type G47.00 Active Problem H/O asbestosis Z87.09 Active Assessment History of ADHD Z86.59 Active Problem GERD (gastroesophageal reflux disease) K21.9 Active Problem Enlarged prostate N40.0 Active Problem Vitamin D deficiency E55.9 Active Problem Insomnia, unspecified type G47.00 Active Problem Other chronic pain G89.29 Active Assessment GERD (gastroesophageal reflux disease) K21.9 Active Assessment 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 Active Problem Bee allergy status Z91.030 Active Assessment Hoarse R49.0 Active Problem Essential hypertension I10 Active Problem Hypogonadism in male E29.1 Active Problem Anxiety F41.9 Active Problem 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 Active Assessment Routine general medical examination at a health care facility Z00.00 Active Problem Chronic gastritis without bleeding, unspecified gastritis type K29.50 Active Assessment Essential hypertension I10 Active Assessment Encounter for screening colonoscopy Z12.11 Active Problem Low testosterone E29.1 Active Problem History of ADHD Z86.59 Active Problem Hiatal hernia K44.9 Active Problem Diverticulosis large intestine w/o perforation or abscess w/bleeding K57.31 Active Medications Medication Code System Code Instructions Start Date End Date Status Dosage HydrOXYzine HCl [facility] 76347547417 10 mg Orally every 6-8 hrs for anxiety Active 1 tablet as needed Dexilant ND 48599254369 60 MG Orally qd November 24, 2017 Active 1 capsule Tamsulosin HCl ND 76143993783 0.4 MG Orally Once a day Active 1 capsule Viagra [facility] 81452880064 100 MG Active TAKE 1 TABLET BY MOUTH EVERY DAY NEEDED Carafate [facility] 19967258547 1 GM Orally four times a day PRN Active 1 tablet on an empty stomach before meals EPINEPHrine [facility] 81869357661 0.3 MG/0.3ML Injection as directed September 07, 2017 Active as directed Zantac [facility] 52395764290 300 MG Active TAKE 1 TABLET BY MOUTH AT BEDTIME Eszopiclone [facility] 58157529283 3 MG Orally once every night PRN Active 1 tablet Vital Signs Date/Time: Jan 12, 2018 BMI 27.69 Index Weight 193 lbs Height 70 in Cardiac Monitoring Heart Rate 77 /min Blood Pressure Diastolic 68 mm Hg Blood Pressure Systolic 120 mm Hg Results Name Result Date Reference Range Unit Abnormality Flag CBC With Differential/Platelet ----Lymphs 35 [id number] Not Estab. % ----Neutrophils 56 [id number] Not Estab. % ----Baso (Absolute) 0.1 [id number] 0.0-0.2 x10E3/uL ----Hemoglobin 15.2 19057280 13.0-17.7 g/dL ----Eos (Absolute) 0.2 [id number] 0.0-0.4 x10E3/uL ----Hematocrit 42.8 43102634 37.5-51.0 % ----Monocytes(Absolute) 0.3 [id number] 0.1-0.9 x10E3/uL ----MCV 94 78707489 79-97 fL ----Lymphs (Absolute) 2.5 [id number] 0.7-3.1 x10E3/uL ----MCH 33.5 [id number] 26.6-33.0 pg H ----Neutrophils (Absolute) 4.1 37287814 1.4-7.0 x10E3/uL ----MCHC 35.5 73655597 31.5-35.7 g/dL ----Immature Granulocytes 0 [id number] Not Estab. % ----Basos 1 [id number] Not Estab. % ----RDW 13.6 32332207 12.3-15.4 % ----Immature Grans (Abs) 0.0 [id number] 0.0-0.1 x10E3/uL ----WBC 7.3 46206171 3.4-10.8 x10E3/uL ----Platelets 220 90688710 150-379 x10E3/uL ----Eos 3 [id number] Not Estab. % ----RBC 4.54 [id number] 4.14-5.80 x10E6/uL ----Monocytes 5 [id number] Not Estab. % Prostate-Specific Ag, Serum ----Prostate Specific Ag, Serum 1.0 [id number] 0.0-4.0 ng/mL Urinalysis, Routine ----Occult Blood Negative [id number] Negative ----Ketones Negative [id number] Negative ----Glucose Negative 42374916 Negative ----Protein Negative [id number] Negative/Trace ----WBC Esterase Negative [id number] Negative ----Urobilinogen,Semi-Qn 0.2 97287161 0.2-1.0 mg/dL ----Bilirubin Negative [id number] Negative ----Microscopic Examination Comment [id number] ----Nitrite, Urine Negative [id number] Negative ----Specific [place] 1.014 54284501 1.005-1.030 ----pH 6.0 80106704 5.0-7.5 ----Urine-Color Yellow [id number] Yellow ----Appearance Clear [id number] Clear TSH ----TSH 1.480 [id number] 0.450-4.500 uIU/mL Comp. Metabolic Panel (14) ----Potassium 4.1 71025694 3.5-5.2 mmol/L ----Sodium 140 47931744 134-144 mmol/L ----BUN/Creatinine Ratio 9 [id number] 10-24 L ----eGFR If Africn Am 79 72084084 >59 mL/min/1.73 ----eGFR If NonAfricn Am 69 [id number] >59 mL/min/1.73 ----Creatinine 1.10 81073986 0.76-1.27 mg/dL ----BUN 10 32914829 8-27 mg/dL ----Glucose 98 23295654 65-99 mg/dL ----AST (SGOT) 18 20180113 0-40 IU/L ----Globulin, Total 2.3 20180113 1.5-4.5 g/dL ----ALT (SGPT) 14 20180113 0-44 IU/L ----A/G Ratio 2.0 20180113 1.2-2.2 ----Bilirubin, Total 0.4 20180113 0.0-1.2 mg/dL ----Alkaline Phosphatase 61 20180113 39-117 IU/L ----Carbon Dioxide, Total 27 20180113 20-29 mmol/L ----Calcium 10.0 20180113 8.6-10.2 mg/dL ----Protein, Total 6.9 20180113 6.0-8.5 g/dL ----Albumin 4.6 20180113 3.6-4.8 g/dL ----Chloride 100 20180113 96-106 mmol/L Summary Purpose eClinicalWorks Submission
--- OUTSIDE RECORDS SUMMARY | 2018-07-25 10:39 | XMS REPORT ---
Author Author Clifton Nieto Organization e[employer]Works Address Unknown Phone Unavailable Care Team Providers Care Curve Saw Operator Name Role Phone Clifton Nieto CP Unavailable [...] Active Problem Essential hypertension I10 Active Assessment Insomnia, unspecified type G47.00 Active Problem Low testosterone E29.1 Active Problem GERD (gastroesophageal reflux disease) K21.9 Active Problem Vitamin D deficiency E55.9 Active Medications Medication Code System Code Instructions Start Date End Date Status Dosage Eszopiclone [facility] 94727317537 3 MG Orally once every night PRN Active 1 tablet Results No Known Results Summary Purpose eClinicalWorks Submission
--- OUTSIDE RECORDS SUMMARY | 2018-07-25 10:39 | XMS REPORT ---
Author Author Melanie Moreland Organization [employer] Address Unknown Phone Unavailable Care Team Providers Care Stripper Latex Name Role Phone Melanie Moreland CP Unavailable [...] Instructions Start Date End Date Status Dosage Dexilant NDC 77279042733 60 MG Orally qd LAST REFILL, NEEDS PHYSICAL November 24, 2017 Active 1 capsule Results No Known Results Summary Purpose eClinicalWorks Submission
--- OUTSIDE RECORDS SUMMARY | 2018-07-25 10:39 | XMS REPORT ---
Author Author Nina Recinos [employer] Address Unknown Phone Unavailable Care Team Providers Care Director Patient Accounting Name Role Phone Nina Recinos Unavailable Allergies, [...] GERD (gastroesophageal reflux disease) K21.9 Active Assessment Right hand pain M79.641 Active Assessment Acute pain of left shoulder M25.512 Active Assessment Body aches R52 Active Assessment Injury of head, initial encounter S09.90XA Active Medications Medication Code System Code Instructions Start Date End Date Status Dosage Cyclobenzaprine HCl [facility] [address]-14 10 MG Orally once a day at night Feb 08, 2017 Feb 22, 2017 Active 1 tablet as needed Analpram-HC [facility]AM[facility] [address]-36 1-2.5 % Rectal Three times a day Active 1 application to affected area as needed Zantac [facility] 85985532308 300 MG Once a day Active take 1 tablet by mouth at bedtime Baclofen [facility] [address]-06 10 MG/20ML Intrathecal Active not defined Naproxen [facility] NAMED [facility] [address]-72 500 MG Orally twice a day Feb 08, 2017 Feb 22, 2017 Active 1 tablet as needed Viagra [facility] NAMED [facility] [address]-93 100 MG Active TAKE 1 TABLET BY MOUTH EVERY DAY NEEDED Bromfed DM [facility] NAMED [facility] [address]-17 30-2-10 MG/5ML Orally every 6 hrs Mar 25, 2015 Active 10 ml as needed Meloxicam [facility] [address]-24 7.5 MG Orally Once a day Active 1 tablet Nexium [facility] 45351004325 40 MG Active TAKE ONE CAPSULE BY MOUTH EVERY DAY Eszopiclone [facility]AM[facility] [address]-49 3 MG Orally once every night PRN Active 1 tablet Co Q 10 [facility] 46955-33266 60 MG Orally Once a day Active 1 capsule with a meal Esomeprazole Magnesium [facility]AMED [facility] [address]-62 40 MG Orally Once a day Active 1 capsule Tamsulosin HCl [facility] NAMED [facility] [address]-71 0.4 MG Orally Active not defined Vital Signs Date/Time: Feb 08, 2017 BMI 27.69 Index Weight 193 lbs Height 70 in Cardiac Monitoring Heart Rate 78 /min Blood Pressure Diastolic 94 mm Hg Blood Pressure Systolic 142 mm Hg Results No Known Results Summary Purpose eClinicalWorks Submission
--- OUTSIDE RECORDS SUMMARY | 2018-07-25 10:39 | XMS REPORT ---
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 Active Assessment Fatigue R53.83 Active Problem Low testosterone E29.1 Active Problem History of ADHD Z86.59 Active Assessment Bee allergy status Z91.030 Active Problem H/O asbestosis Z87.09 Active Assessment Essential hypertension I10 Active Problem Pipe smoker F17.290 Active Medications Medication Code System Code Instructions Start Date End Date Status Dosage Dexilant [facility] 03087883823 60 MG Orally Once a day August 11, 2017 Active 1 capsule Carafate [facility] 87350314344 1 GM Orally four times a day PRN August 11, 2017 November 09, 2017 Active 1 tablet on an empty stomach before meals HydrOXYzine HCl ND 06540832167 10 mg Orally every 6-8 hrs for anxiety Jun 29, 2017 Active 1 tablet as needed EPINEPHrine ND 14847867642 0.3 MG/0.3ML Injection as directed September 07, 2017 Active as directed Eszopiclone ND 04334378632 3 MG Orally once every night PRN Active 1 tablet Zantac ND 04857986899 300 MG Active TAKE 1 TABLET BY MOUTH AT BEDTIME Viagra ND 46873343431 100 MG Active TAKE 1 TABLET BY MOUTH EVERY DAY NEEDED Vital Signs Date/Time: September 07, 2017 BMI 27.69 Index Weight 193 lbs Height 70 in Cardiac Monitoring Heart Rate 76 /min Blood Pressure Diastolic 70 mm Hg Blood Pressure Systolic 110 mm Hg Results Name Result Date Reference Range Unit Abnormality Flag B12 Vitamin 1000MCG Summary Purpose eClinicalWorks Submission
--- OUTSIDE RECORDS SUMMARY | 2018-07-25 10:39 | XMS REPORT ---
Author Author Clifton Nieto Organization [employer] Address Unknown Phone Unavailable Care Team Providers Care Wireline Field Operator Name Role Phone Clifton Nieto CP [...] Start Date End Date Status Dosage Eszopiclone [facility] 31758980881 3 MG Orally once every night PRN Active 1 tablet Results No Known Results Summary Purpose eClinicalWorks Submission
--- OUTSIDE RECORDS SUMMARY | 2018-07-25 10:39 | XMS REPORT ---
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
--- OUTSIDE RECORDS SUMMARY | 2018-07-25 10:39 | XMS REPORT ---
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 Active Assessment Insomnia, unspecified type G47.00 Active Problem Chronic gastritis without bleeding, unspecified gastritis type K29.50 Active Problem Low testosterone E29.1 Active Problem History of ADHD Z86.59 Active Problem Hiatal hernia K44.9 Active Problem Pipe smoker F17.290 Active Problem Diverticulosis large intestine w/o perforation or abscess w/bleeding K57.31 Active Problem H/O asbestosis Z87.09 Active Medications Medication Code System Code Instructions Start Date End Date Status Dosage Eszopiclone [facility] 48465979862 3 MG Orally once every night PRN Active 1 tablet Results No Known Results Summary Purpose eClinicalWorks Submission
--- OUTSIDE RECORDS SUMMARY | 2018-07-25 10:39 | XMS REPORT ---
Author Author Clifton Nieto Organization [employer] Address Unknown Phone Unavailable Care Team Providers Care Plastic Surgeon Name Role Phone Clifton Nieto CP Unavailable [...]
--- OUTSIDE RECORDS SUMMARY | 2018-07-25 10:39 | XMS REPORT ---
Author Author Clifton Nieto Organization [employer]Works Address Unknown Phone Unavailable Care Team Providers Care Roll Forger Name Role Phone Clifton Nieto CP Unavailable [...] GERD (gastroesophageal reflux disease) K21.9 Active Problem Chronic gastritis without bleeding, unspecified gastritis type K29.50 Active Problem Low testosterone E29.1 Active Problem History of ADHD Z86.59 Active Problem Hiatal hernia K44.9 Active Problem Pipe smoker F17.290 Active Problem Diverticulosis large intestine w/o perforation or abscess w/bleeding K57.31 Active Problem H/O asbestosis Z87.09 Active Medications Medication Code System Code Instructions Start Date End Date Status Dosage Dexilant NDC 56588694186 60 MG Orally qd November 24, 2017 Inactive 1 capsule Dexilant NDC 84344755467 60 MG Orally twice a day (bid) Jan 25, 2018 Active 1 capsule Results No Known Results Summary Purpose eClinicalWorks Submission
--- OUTSIDE RECORDS SUMMARY | 2018-07-25 10:39 | XMS REPORT ---
Author Author Nina Recinos [facility] eClinicalWorks Address Unknown Phone Unavailable Care Team Providers Care Acidizer Water Well Name Role Phone Nina Recinos CP Unavailable Allergies No Known Allergies Problems [...]
--- OUTSIDE RECORDS SUMMARY | 2018-07-25 10:40 | XMS REPORT ---
Author Author Clifton Nieto Organization eClinicalWorks Address Unknown Phone Unavailable Care Team Providers Care Hearing Therapy Director Name Role Phone Clifton Nieto CP Unavailable Encounters Encounter Location Date SICK [facility] Mar 25, 2015 Refill [facility] Mar 28, 2015 Acid Extractor-foot pain [facility] October 11, 2014 Unknown [facility] November 01, 2014 PHYSICAL & Pre Op Clearance for foot surgery(Dr Ceballos) [facility] October 31, 2014 Problems Problem Type Condition ICD-9 Code Onset Dates Condition Status Problem Low testosterone E29.1 Active Medications Medication Code System Code Instructions Start Date End Date Status Dosage Bromfed DM [facility] [address]-21 30-2-10 MG/5ML Orally every 6 hrs Mar 25, 2015 Active 10 ml as needed Social History Social History Element Qualifiers Date Reported Last Bone Density: . not sure Mar 25, 2015 Last Colonoscopy: . 2013 Mar 25, 2015 children . 2 Mar 25, 2015 Tobacco Use: . Additional Findings: Tobacco User Pipe smoker, Are you a: current smoker Mar 25, 2015 Flu Vaccine: . no Mar 25, 2015 Use of recreational / street drugs? . Answer: No Mar 25, 2015 Do you have pets? . Status: Yes, Type: dog(s) Mar 25, 2015 Marital Status: . Mar 25, 2015 Caffeine intake? . Status: Yes, What type: Coffee, Tea, Soft Drinks Mar 25, 2015 Do you exercise? . Answer: Yes, Type: walking, running Mar 25, 2015 Do you drink alcohol? . Status: Yes, Type: Wine, Beer, Liquor, How often? Socially, How much? Socially Mar 25, 2015 Summary Purpose eClinicalWorks Submission
--- OUTSIDE RECORDS SUMMARY | 2018-07-25 10:40 | XMS REPORT | Summary of Care ---
Author Author [facility] Organization [facility] Address Unknown Phone Unavailable Encounter FERNANDO Reese(MAHESH) [id number] Date(s): 08/10/15 - 08/10/15 [facility] [address] [place] [address]- Discharge Diagnosis: Urinary retention Discharge Diagnosis: Mass of bladder Discharge Diagnosis: Acute renal insufficiency Discharge Disposition: Home Attending Physician: Charlie Smith MD Vital Signs 1 2 3 Most recent to oldest [Reference Range]: 180.34 cm (08/10/15 8:43 AM) Height 98.2 DegF (08/10/15 1:39 PM) 98.2 DegF (08/10/15 8:43 AM) Temperature Oral [96.4-99.1 DegF] 144/92 mmHg *HI* (08/10/15 1:39 PM) 165/99 mmHg *HI* (08/10/15 11:52 AM) 157/106 mmHg *HI* (08/10/15 8:43 AM) Blood Pressure [90-140/60-90 mmHg] 16 BRMIN (08/10/15 1:39 PM) 16 BRMIN (08/10/15 11:52 AM) 16 BRMIN (08/10/15 8:43 AM) Respiratory Rate [14-20 BRMIN] 98 bpm (08/10/15 1:39 PM) 101 bpm *HI* (08/10/15 11:52 AM) 117 bpm *HI* (08/10/15 8:43 AM) Peripheral Pulse Rate [60-100 bpm] 86.364 kg (08/10/15 8:43 AM) Weight 26.56 m2 (08/10/15 8:43 AM) Body Mass Index Problem List Condition Effective Dates Status Health Status Informant GERD Active (gastroesophageal reflux disease)(Confirmed) Hammer Active toe(Confirmed) Mass of Active foot(Confirmed) Allergies, Adverse Reactions, Alerts Substance Reaction Severity Status NKDA Active Medications ciprofloxacin 500 mg oral tablet 500 mg=1 tab, PO, Q12H, X 10 day, # 20 tab, 0 Refill(s) Start Date: 08/10/15 Stop Date: 08/20/15 Status: Ordered Flomax 0.4 mg oral capsule 0.4 mg=1 cap, PO, Daily, # 10 cap, 0 Refill(s) Start Date: 08/10/15 Stop Date: 08/20/15 Status: Ordered morphine Sulfate 4 mg, Route: IVP, Drug form: INJ, ONCE, Dosing Weight 86.364, kg, Priority: STAT , Start date: 08/10/15 12:55:00, Stop date: 08/10/15 12:55:00 Start Date: 08/10/15 Stop Date: 08/10/15 Status: Completed tramadol 50 mg oral tablet 50 mg=1 tab, PO, BID, X 10 day, # 20 tab, 0 Refill(s) Start Date: 08/10/15 Stop Date: 08/20/15 Status: Ordered Results ELECTROLYTES Most recent to 1 oldest [Reference Range]: Sodium Lvl [135-145 138 mEq/L mEq/L] (08/10/15 9:28 AM) Potassium Lvl 4.0 mEq/L [3.5-5.1 mEq/L] (08/10/15 9:28 AM) Chloride Lvl [95-109 101 mEq/L mEq/L] (08/10/15 9:28 AM) CO2 [24-32 mEq/L] 27 mEq/L (08/10/15 9:28 AM) AGAP [10.0-20.0 14.0 mEq/L mEq/L] (08/10/15 9:28 AM) CHEM PANEL Most recent to 1 oldest [Reference Range]: Creatinine Lvl 1.77 mg/dL [0.50-1.40 mg/dL] *HI* (08/10/15 9:28 AM) eGFR 39 mL/min/1.73m2 1 *NA* (08/10/15 9:28 AM) BUN [7-22 mg/dL] 11 mg/dL (08/10/15 9:28 AM) Glucose Lvl [70-99 114 mg/dL mg/dL] *HI* (08/10/15 9:28 AM) Calcium Lvl 9.1 mg/dL [8.5-10.5 mg/dL] (08/10/15 9:28 AM) 1Result Comment: The eGFR is calculated using the [...] from the National Kidney Disease Education Program ( NKDEP) which additionally recommends that when the eGFR is used in patients with extremes of body mass index for purposes of drug dosing, the eGFR should be mul tiplied by the estimated BMI. URINE AND STOOL Most recent to 1 oldest [Reference Range]: UA Turbidity [Clear] Clear (08/10/15 9:28 AM) UA Color Ltyellow *NA* (08/10/15 9:28 AM) UA pH [5.0-8.0] 7.0 (08/10/15 9:28 AM) UA Spec Grav 1.006 [<=1.030] (08/10/15 9:28 AM) UA Glucose [Negative Negative mg/dL mg/dL] *NA* (08/10/15 9:28 AM) UA Blood [Negative] Moderate *ABN* (08/10/15 9:28 AM) UA Ketones [Negative Trace mg/dL mg/dL] *ABN* (08/10/15 9:28 AM) UA Protein [Negative Negative mg/dL mg/dL] (08/10/15 9:28 AM) UA Urobilinogen <=1.0 mg/dL [0.1-1.0 mg/dL] *NA* (08/10/15 9:28 AM) UA Bili [Negative] Negative *NA* (08/10/15 9:28 AM) UA Leuk Est Negative [Negative] (08/10/15 9:28 AM) UA Nitrite Negative [Negative] (08/10/15 9:28 AM) UA WBC [0-5 /HPF] <1 /HPF (08/10/15 9:28 AM) UA RBC [0-2 /HPF] 5 /HPF *HI* (08/10/15 9:28 AM) UA Sq Epi None Seen *NA* (08/10/15 9:28 AM) UA Mucus [None Seen Few /LPF /LPF] *NA* (08/10/15 9:28 AM) HEMATOLOGY Most recent to 1 oldest [Reference Range]: WBC [3.7-10.4 K/CMM] 10.9 K/CMM *HI* (08/10/15 9:28 AM) RBC [4.70-6.10 4.41 M/CMM M/CMM] *LOW* (08/10/15 9:28 AM) Hgb [14.0-18.0 g/dL] 14.7 g/dL (08/10/15 9:28 AM) Hct [42.0-54.0 %] 42.5 % (08/10/15 9:28 AM) MCV [80.0-94.0 fL] 96.2 fL *HI* (08/10/15 9:28 AM) MCH [27.0-31.0 pg] 33.3 pg *HI* (08/10/15 9:28 AM) MCHC [32.0-36.0 34.6 g/dL g/dL] (08/10/15 9:28 AM) RDW [11.5-14.5 %] 12.3 % (08/10/15 9:28 AM) Platelet [133-450 177 K/CMM K/CMM] (08/10/15 9:28 AM) MPV [7.4-10.4 fL] 8.6 fL (08/10/15 9:28 AM) Segs [45.0-75.0 %] 80.7 % *HI* (08/10/15 9:28 AM) Lymphocytes 10.4 % [20.0-40.0 %] *LOW* (08/10/15 9:28 AM) Monocytes [2.0-12.0 6.1 % %] (08/10/15 9:28 AM) Eosinophils [0.0-4.0 2.5 % %] (08/10/15 9:28 AM) Basophils [0.0-1.0 0.3 % %] (08/10/15 9:28 AM) Segs-Bands # 8.8 K/CMM [1.5-8.1 K/CMM] *HI* (08/10/15 9:28 AM) Lymphocytes # 1.1 K/CMM [1.0-5.5 K/CMM] (08/10/15 9:28 AM) Monocytes # [0.0-0.8 0.7 K/CMM K/CMM] (08/10/15 9:28 AM) Eosinophils # 0.3 K/CMM [0.0-0.5 K/CMM] (08/10/15 9:28 AM) Immunizations No data available for this section Procedures Procedure Date Related Diagnosis Body Site Cervical spinal fusion1 Foot joint operations Gallbladder operation Prostatectomy Repair of rotator cuff of shoulder Shoulder joint operations 90074 Social History Social History Type Response Smoking Status Current every day smoker; Exposure to Tobacco Smoke None; Other Tobacco Frequency daily pipe smoker; Cigarette Smoking Last 365 Days No; Reg Smoking Cessation Counseling No Assessment and Plan No data available for this section
--- OUTSIDE RECORDS SUMMARY | 2018-07-25 10:40 | XMS REPORT ---
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 [facility] October 11, 2014 Unknown [facility] November 01, 2014 PHYSICAL & Pre Op Clearance for foot surgery(Dr Ceballos) [facility] October 31, 2014 Problems Problem Type Condition ICD-9 Code Onset Dates Condition Status Problem Low testosterone E29.1 Active Medications Medication Code System Code Instructions Start Date End Date Status Dosage Nexium [facility] [address]-95 40 mg Orally Once a day October 31, 2014 Active 1 capsule Social History Social History Element Qualifiers Date [...]
--- OUTSIDE RECORDS SUMMARY | 2018-07-25 10:40 | XMS REPORT | Summary of Care ---
Author Organization Unknown Address Unknown Phone Unavailable Encounter FERNANDO Reese(MAHESH) [id number] Date(s): 11/15/14 - 11/15/14 [facility] [address] [place] [address]- [phone] Discharge Disposition: Home Physician Attending: Minesh Ceballos DPM Physician_Referring: Minesh Ceballos DPM Vital Signs 1 2 3 Most recent to oldest [Reference Range]: 180.34 cm (11/14/14 3:06 PM) Height 97.3 DegF (11/14/14 3:06 PM) Temperature Oral [96.4-99.1 DegF] 110/70 mmHg (11/15/14 10:45 AM) 115/66 mmHg (11/15/14 10:30 AM) 94/54 mmHg (11/15/14 10:15 AM) Blood Pressure [90-140/60-90 mmHg] 13 BRMIN *LOW* (11/15/14 9:45 AM) 16 BRMIN (11/15/14 9:30 AM) 16 BRMIN (11/15/14 9:15 AM) Respiratory Rate [14-20 BRMIN] 75 bpm (11/14/14 3:06 PM) Peripheral Pulse Rate [60-100 bpm] 92.727 kg (11/14/14 3:06 PM) Weight 28.51 m2 (11/14/14 3:06 PM) Body Mass Index Problem List Condition Effective Dates Status Health Status Informant GERD Active (gastroesophageal reflux disease)(Confirmed) Hammer Active toe(Confirmed) Mass of Active foot(Confirmed) Allergies, Adverse Reactions, Alerts Substance Reaction Severity Status NKDA Active Medications Ancef 2 gm, Route: IVPB, ONCE, Dosing Weight 92.727, kg, Start date: 11/15/14 9:03:00, Duration: 1 doses or times, Stop date: 11/15/14 9:03:00 Start Date: 11/15/14 Stop Date: 11/15/14 Status: Completed fentaNYL 25 microgram, 0.5 mL, Route: IVP, Drug form: INJ, Q5Min, Dosing Weight 92.727, k g, PRN Pain Score 4-6, Start date: 11/15/14 9:30:00, Duration: 4 doses or times, Stop date: Limited # of times Notes: (Same as: Sublimaze) Preservative free. Start Date: 11/15/14 Stop Date: 11/15/14 Status: Discontinued flumazenil 0.2 mg, 2 mL, Route: IVP, Drug form: INJ, PRN, Dosing Weight 92.727, kg, PRN Lucho zodiazepine Reversal, Initial dose, Start date: 11/15/14 9:30:00, Duration: 30 d ay, Stop date: 12/15/14 9:29:00 Notes: (Same as: Romazicon) Start Date: 11/15/14 Stop Date: 11/15/14 Status: Discontinued hydrALAZINE 10 mg, 0.5 mL, Route: IVP, Drug form: INJ, Q20Min, Dosing Weight 92.727, kg, PRN Elevated BP, Start date: 11/15/14 9:30:00, Duration: 2 doses or times, Stop shan e: Limited # of times Notes: (Same as: Apresoline)Push over 5 minutes Start Date: 11/15/14 Stop Date: 11/15/14 Status: Discontinued hydromorphone 0.5 mg, 0.5 mL, Route: IVP, Drug form: INJ, Q5Min, Dosing Weight 92.727, kg, PRN Pain Score 7-10, Start date: 11/15/14 9:30:00, Duration: 4 doses or times, Stop date: Limited # of times Start Date: 11/15/14 Stop Date: 11/15/14 Status: Discontinued Lactated Ringers Injection IV 1000 mL 1,000 mL, Rate: 25 ml/hr, Infuse over: 40 hr, Route: IV, Dosing Weight 92.727 kg , Total Volume: 1,000, Start date: 11/15/14 9:03:00, Duration: 30 day, Stop date : 12/15/14 9:02:00 Start Date: 11/15/14 Stop Date: 11/15/14 Status: Discontinued meloxicam PO, PRN, 0 Refill(s) Start Date: 11/14/14 Status: Ordered metoprolol 1 mg, 1 mL, Route: IVP, Drug form: INJ, Q5Min, Dosing Weight 92.727, kg, PRN Oth er -See Comment, Start date: 11/15/14 9:30:00, Duration: 5 doses or times, Stop date: Limited # of times Notes: (Same as: Lopressor)Push over 2 minutes Start Date: 11/15/14 Stop Date: 11/15/14 Status: Discontinued naloxone 0.04 mg, 0.1 mL, Route: IVP, Drug form: INJ, Q2MIN, Dosing Weight 92.727, kg, ME N Narcotic Reversal, Start date: 11/15/14 9:30:00, Duration: 8 doses or times, S top date: Limited # of times Notes: Same as Narcan Start Date: 11/15/14 Stop Date: 11/15/14 Status: Discontinued NexIUM PO, Daily, 0 Refill(s) Start Date: 11/14/14 Status: Ordered [place] 10/325 oral tablet 1 tab, Route: PO, Drug Form: TAB, Dosing Weight 92.727, kg, ONCE, Start date: 9:30:00, Stop date: 11/15/14 9:30:00 Notes: Do not exceed 4gm/day of acetaminophen. (Same as: [place] 325/10) Start Date: 11/15/14 Stop Date: 11/15/14 Status: Ordered ondansetron 4 mg, Route: IVP, ONCE, Dosing Weight 92.727, kg, PRN Nausea & Vomiting, Start date: 11/15/14 9:30:00 Start Date: 11/15/14 Stop Date: 11/15/14 Status: Completed oxyCODONE 5 mg, 1 tab, Route: PO, Drug form: TAB, Q4H, Dosing Weight 92.727, kg, PRN Pain Score 4-6, Start date: 11/15/14 9:30:00, Duration: 30 day, Stop date: 12/15/14 9 :29:00 Notes: (Same as: Roxicodone) Start Date: 11/15/14 Stop Date: 11/15/14 Status: Discontinued testosterone 0 Refill(s) Start Date: 11/14/14 Status: Ordered Viagra PO, PRN, 0 Refill(s) Start Date: 11/14/14 Status: Ordered Results No data available for this section Immunizations No data available for this section Procedures Procedure Date Related Diagnosis Body Site Cervical spinal fusion1 Foot joint operations Gallbladder operation Prostatectomy Shoulder joint operations 95717 Social History Social History Type Response Smoking Status Current every day smoker; Exposure to Tobacco Smoke None; Other Tobacco Frequency daily pipe smoker; Cigarette Smoking Last 365 Days No; Reg Smoking Cessation Counseling No Assessment and Plan No data available for this section
--- OUTSIDE RECORDS SUMMARY | 2018-07-25 10:40 | XMS REPORT ---
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 [facility] October 11, 2014 Refill [facility] May 01, 2016 Unknown [facility] November 01, 2014 PHYSICAL & Pre Op Clearance for foot surgery(Dr Ceballos) [facility] October 31, 2014 Unknown [facility] Mar 18, 2016 bump on the neck [facility] Mar 05, 2016 Unknown [facility] Mar 09, 2016 Problems Problem Type Condition ICD-9 Code Onset Dates Condition Status Problem Low testosterone E29.1 Active Assessment Insomnia G47.00 Active Problem Vitamin D deficiency E55.9 Active Problem GERD (gastroesophageal reflux disease) K21.9 Active Problem Hypogonadism in male E29.1 Active Problem H/O asbestosis Z87.09 Active Problem Pipe smoker F17.290 Active Problem History of ADHD Z86.59 Active Problem Enlarged prostate N40.0 Active Medications Medication Code System Code Instructions Start Date End Date Status Dos[facility] [address]-58 3 MG Orally Once a day Active 1 tablet immediately before bedtime Social History Social History Element Qualifiers Date Reported Last Bone Density: . not sure Mar 05, 2016 Last Colonoscopy: . 2012Mar 05, 2016 children . 2 Mar 05, 2016 Tobacco Use: . Additional Findings: Tobacco User Pipe smoker Mar 05, 2016 Flu Vaccine: . no Mar 05, 2016 Use of recreational / street drugs? . Answer: No Mar 05, 2016 Do you have pets? . Status: Yes, Type: dog(s) Mar 05, 2016 Marital Status: . Mar 05, 2016 Caffeine intake? . Status: Yes, What type: Coffee, Tea, Soft Drinks Mar 05, 2016 Do you exercise? . Answer: Yes, Type: walking, running Mar 05, 2016 Do you drink alcohol? . Status: Yes, Type: Wine, Beer, Liquor, How often? Socially, How much? Socially Mar 05, 2016 Summary Purpose eClinicalWorks Submission
--- OUTSIDE RECORDS SUMMARY | 2018-07-25 10:40 | XMS REPORT ---
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 [facility] October 11, 2014 Unknown [facility] November 01, 2014 PHYSICAL & Pre Op Clearance for foot surgery(Dr Ceballos) [facility] October 31, 2014 Unknown [facility] Mar 18, 2016 bump on the neck [facility] Mar 05, 2016 Unknown [facility] Mar 09, 2016 Unknown [facility] Jun 12, 2016 Unknown [facility] Jul 14, 2016 Refill [facility] May 01, 2016 RF [facility] Jun 10, 2016 Problems Problem Type Condition ICD-9 Code [...] Start Date End Date Status Dosage Eszopiclone [facility] [address]-41 3 MG Orally once every night PRN Active 1 tablet Social History Social History Element Qualifiers Date Reported Last Bone Density: . not sure Mar 05, 2016 Last Colonoscopy: . 2013 Mar 05, 2016 children . 2 Mar 05, [...]
--- OUTSIDE RECORDS SUMMARY | 2018-07-25 10:40 | XMS REPORT ---
Author Clifton Watson Organization [employer] Address Unknown Phone Unavailable Care Team Providers Care Commercial Decorator Name Role Phone Clifton Nieto CP Unavailable Allergies, Adverse Reactions, Alerts Substance Reaction Event Type N.K.D.A. 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 [facility] October 11, 2014 Unknown [facility] November 01, 2014 PHYSICAL & Pre Op Clearance for foot surgery(Dr Ceballos) [facility] October 31, 2014 Problems Problem Type Condition ICD-9 Code Onset Dates Condition Status Assessment Acute nasopharyngitis J00 Active Assessment Cough R05 Active Problem Low testosterone E29.1 Active Assessment Low testosterone E29.1 Active Medications Medication Code System Code Instructions Start Date End Date Status Dosage Analpram-HC [facility] [address]-96 1-2.5 % Rectal Three times a day Active 1 application to affected area as needed Meloxicam [facility] [address]-18 7.5 MG Orally Once a day Active 1 tablet Nexium [facility] [address]-10 40 mg Orally Once a day October 31, 2014 Active 1 capsule Bromfed DM [facility] [address]-74 30-2-10 MG/5ML Orally every 6 hrs Mar 25, 2015 Active 10 ml as needed Testosterone Cypionate [facility] [address]-07 200 MG/ML Intramuscular Active 1 ml Baclofen [facility] [address]-61 10 MG/20ML Intrathecal Active Unknown Nexium [facility] [address]-61 40 MG Orally Once a day Active 1 capsule Viagra [facility] [address]-90 100 MG Orally Once a day Active 1 tablet as needed Social History Social History Element [...] Socially, How much? Socially Mar 25, 2015 Family history Qualifier Description Comment Date Reported Maternal Grandmother Comment not available Mar 25, 2015 Paternal Grandmother Comment not available Mar 25, 2015 Siblings Comment not available Mar 25, 2015 Maternal Grandfather Comment not available Mar 25, 2015 Children Comment not available Mar 25, 2015 Father Comment not available Mar 25, 2015 Paternal Grandfather Comment not available Mar 25, 2015 Mother Comment not available Mar 25, 2015 Other: Comment not available Mar 25, 2015 Vital Signs Date/Time: Mar 25, 2015 Weight 198 lbs Height 70 in Temperature 98.5 F Cardiac Monitoring Heart Rate 72 /min Blood Pressure Diastolic 70 mm Hg Blood Pressure Systolic 122 mm Hg Summary Purpose eClinicalWorks Submission
--- OUTSIDE RECORDS SUMMARY | 2018-07-25 10:40 | XMS REPORT ---
Author Clifton Watson Organization [employer] Address Unknown Phone Unavailable Care Team Providers Care Motor Polarizer Name Role Phone Clifton Nieto CP Unavailable Allergies, Adverse Reactions, Alerts Substance Reaction Event Type N.K.D.A. 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 [facility] October 11, 2014 Unknown [facility] November 01, 2014 PHYSICAL & Pre Op Clearance for foot surgery(Dr Ceballos) [facility] October 31, 2014 Problems Problem Type Condition ICD-9 Code Onset Dates Condition Status Assessment Enlarged prostate N40.0 Active Assessment Routine general medical examination at a health care facility Z00.00 Active Assessment Low testosterone E29.1 Active Problem GERD (gastroesophageal reflux disease) K21.9 Active Problem History of ADHD Z86.59 Active Problem Vitamin D deficiency E55.9 Active Problem Pipe smoker F17.290 Active Problem Low testosterone E29.1 Active Problem Enlarged prostate N40.0 Active Problem H/O asbestosis Z87.09 Active Assessment History of ADHD Z86.59 Active Assessment GERD (gastroesophageal reflux disease) K21.9 Active Assessment Vitamin D deficiency E55.9 Active Assessment Insomnia G47.00 Active Assessment H/O asbestosis Z87.09 Active Medications Medication Code System Code Instructions Start Date End Date Status Dosage [facility]ams[facility] [address]-19 0.4 MG Orally Active Unknown Bromfed DM [facility] [address]-43 30-2-10 MG/5ML Orally every 6 hrs Mar 25, 2015 Active 10 ml as needed Viagra [facility] [address]-25 100 MG Active TAKE 1 TABLET BY MOUTH EVERY DAY NEEDED [facility] [address]-73 3 MG Orally Once a day Active 1 tablet immediately before bedtime Analpram-HC [facility] [address]-42 1-2.5 % Rectal Three times a day Active 1 application to affected area as needed Baclofen [facility] [address]-50 10 MG/20ML Intrathecal Active Unknown Zantac [facility] [address]-09 300 MG Orally Once a day December 03, 2015 Active 1 tablet at bedtime Nexium [facility] [address]-74 40 mg Orally Once a day Active 1 capsule Testosterone Cypionate [facility] [address]-55 200 MG/ML Intramuscular every 2 weeks Active 1 ml Meloxicam [facility] [address]-67 7.5 MG Orally Once a day Active 1 tablet Co Q 10 [facility] [address]755 60 MG Orally Once a day Active 1 capsule with a meal Social History Social History Element Qualifiers Date Reported Last Bone Density: . not sure December 03, 2015 Last Colonoscopy: . 2013 December 03, 2015 children . 2 December 03, 2015 Tobacco Use: . Additional Findings: Tobacco User Pipe smoker December 03, 2015 Flu Vaccine: . no December 03, 2015 Use of recreational / street drugs? . Answer: No December 03, 2015 Do you have pets? . Status: Yes, Type: dog(s) December 03, 2015 Marital Status: . December 03, 2015 Caffeine intake? . Status: Yes, What type: Coffee, Tea, Soft Drinks December 03, 2015 Do you exercise? . Answer: Yes, Type: walking, running December 03, 2015 Do you drink alcohol? . Status: Yes, Type: Wine, Beer, Liquor, How often? Socially, How much? Socially December 03, 2015 Family history Qualifier Description Comment Date Reported Maternal Grandmother Comment not available December 03, 2015 Paternal Grandmother Comment not available December 03, 2015 Siblings Comment not available December 03, 2015 Maternal Grandfather Comment not available December 03, 2015 Children Comment not available December 03, 2015 Father Comment not available December 03, 2015 Paternal Grandfather Comment not available December 03, 2015 Mother Comment not available December 03, 2015 Other: Comment not available December 03, 2015 Vital Signs Date/Time: December 03, 2015 Weight 192 lbs Height 70 in Blood Pressure Diastolic 72 mm Hg Blood Pressure Systolic 110 mm Hg Summary Purpose eClinicalWorks Submission
--- OUTSIDE RECORDS SUMMARY | 2018-07-25 10:40 | XMS REPORT ---
Author Author Clifton Nieto Organization [employer] Address Unknown Phone Unavailable Care Team Providers Care Linseed Oil Temperer Name Role Phone Clifton Nieto CP Unavailable [...] Start Date End Date Status Dosage Eszopiclone [facility] 62794036914 3 MG Orally once every night PRN Active 1 tablet Results No Known Results Summary Purpose eClinicalWorks Submission
--- OUTSIDE RECORDS SUMMARY | 2018-07-25 10:40 | XMS REPORT ---
Author Author Melanie Moreland [facility] eClinical[employer] Address Unknown Phone Unavailable Care Team Providers Care Sight Effects Specialist Name Role Phone Melanie Moreland Unavailable Encounters Encounter Location Date SICK [facility] Mar 25, 2015 Refill [facility] Mar 28, 2015 Unknown [facility] Apr 10, 2015 PHYSICAL [facility] December 03, 2015 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 [facility] October 11, 2014 Unknown [facility] November 01, 2014 PHYSICAL & Pre Op Clearance for foot surgery(Dr Ceballos) [facility] October 31, 2014 Unknown [facility] Mar 18, 2016 bump on the neck [facility] Mar 05, 2016 Unknown [facility] Mar 09, 2016 Problems Problem Type Condition ICD-9 Code Onset Dates Condition Status Problem Low testosterone E29.1 Active Problem Vitamin D deficiency E55.9 Active Problem GERD (gastroesophageal reflux disease) K21.9 Active Problem Hypogonadism in male E29.1 Active Problem H/O asbestosis Z87.09 Active Problem Pipe smoker F17.290 Active Problem History of ADHD Z86.59 Active Problem Enlarged prostate N40.0 Active Social History Social History Element Qualifiers Date [...]
--- OUTSIDE RECORDS SUMMARY | 2018-07-25 10:40 | XMS REPORT ---
Author Author Radha Sandoval [facility] [employer] Address Unknown Phone Unavailable Care Team Providers Care Desktop Publishing Associate Name Role Phone Radha Sandoval CP Unavailable Allergies, Adverse Reactions, Alerts Substance Reaction Event Type N.K.D.A. Info Not Available Non Drug Allergy Encounters Encounter Location Date SICK [facility] Mar 25, 2015 Refill [facility] Mar 28, [address] 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 [facility] October 11, 2014 Unknown [facility] November 01, 2014 PHYSICAL & Pre Op Clearance for foot surgery(Dr Ceballos) [facility] October 31, 2014 bump on the neck [facility] Mar 05, 2016 Problems Problem Type Condition ICD-9 Code Onset Dates Condition Status Assessment Neck mass R22.1 Active Problem Low testosterone E29.1 Active Assessment Pipe smoker F17.290 Active Assessment Hypogonadism in male E29.1 Active Problem Vitamin D deficiency E55.9 Active Problem GERD (gastroesophageal reflux disease) K21.9 Active Problem Hypogonadism in male E29.1 Active Problem H/O asbestosis Z87.09 Active Problem Pipe smoker F17.290 Active Problem History of ADHD Z86.59 Active Problem Enlarged prostate N40.0 Active Medications Medication Code System Code Instructions Start Date End Date Status Dosage Nexium [facility] [address]-80 40 mg Orally Once a day Active 1 capsule Zantac [facility] [address]-00 300 MG Orally Once a day December 03, 2015 Active 1 tablet at bedtime Baclofen [facility] [address]-06 10 MG/20ML Intrathecal Active Unknown Bromfed DM [facility] [address]-46 30-2-10 MG/5ML Orally every 6 hrs Mar 25, 2015 Active 10 ml as needed [facility] [address]-56 3 MG Orally Once a day Active 1 tablet immediately before bedtime Testosterone Cypionate [facility] [address]-04 200 MG/ML Intramuscular every 2 weeks Active 1 ml Analpram-HC [facility] [address]-54 1-2.5 % Rectal Three times a day Active 1 application to affected area as needed Co Q 10 [facility] [address]25 60 MG Orally Once a day Active 1 capsule with a meal Tamsulosin HCl [facility] [address]-05 0.4 MG Orally Active Unknown Viagra [facility] [address]-50 100 MG Active TAKE 1 TABLET BY MOUTH EVERY DAY NEEDED Meloxicam [facility] [address]-45 7.5 MG Orally Once a day Active 1 tablet Social History Social History [...] Socially, How much? Socially Mar 05, 2016 Vital Signs Date/Time: Mar 05, 2016 Weight 195 lbs Height 70 in Cardiac Monitoring Heart Rate 71 /min Blood Pressure Diastolic 70 mm Hg Blood Pressure Systolic 115 mm Hg Results Chest 2 views- Xray Summary Purpose eClinicalWorks Submission
--- OUTSIDE RECORDS SUMMARY | 2018-07-25 10:40 | XMS REPORT ---
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
--- OUTSIDE RECORDS SUMMARY | 2018-07-25 10:40 | XMS REPORT ---
Author Author Clifton Nieto Organization [employer] Address Unknown Phone Unavailable Care Team Providers Care Paper Wood Cutter Name Role Phone Clifton Nieto CP [...] Start Date End Date Status Dosage Eszopiclone [facility] 68574556282 3 MG Orally once every night PRN Active 1 tablet Results No Known Results Summary Purpose eClinicalWorks Submission
--- OUTSIDE RECORDS SUMMARY | 2018-07-25 10:40 | XMS REPORT ---
Author Author Melanie Moreland [facility] e[employer]Works Address Unknown Phone Unavailable Care Team Providers Care Manager Title Name Role Phone Melanie Moreland Unavailable Encounters Encounter Location Date SICK [facility] Mar 25, 2015 Refill [facility] Mar 28, 2015 Unknown [facility] Apr 10, 2015 PHYSICAL 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 October 11, 2014 Unknown [facility] November 01, 2014 PHYSICAL & Pre Op Clearance for foot surgery(Dr Ceballos) [facility] October 31, 2014 bump on the neck [facility] Mar 05, 2016 Unknown [facility] Mar 09, 2016 Problems Problem Type Condition ICD-9 Code Onset Dates Condition Status Problem Low testosterone E29.1 Active Assessment Neck mass R22.1 Active Problem Vitamin D deficiency E55.9 Active [...]
--- OUTSIDE RECORDS SUMMARY | 2018-07-25 10:40 | XMS REPORT ---
Author Author Radha Sandoval [facility] eClinicalWorks Address Unknown Phone Unavailable Care Team Providers Care Taxation Agent Name Role Phone Radha Sandoval Unavailable Allergies, Adverse Reactions, Alerts Substance Reaction Event Type N.K.D.A. 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 [facility] October 11, 2014 Unknown [facility] November 01, 2014 PHYSICAL & Pre Op Clearance for foot surgery(Dr Ceballos) [facility] October 31, 2014 Unknown [facility] Mar 18, 2016 bump on the neck [facility] Mar 05, 2016 Unknown [facility] Mar 09, 2016 sinus infection [facility] July 16, 2016 Unknown [facility] Jun 12, 2016 Unknown [facility] Jul 14, 2016 Refill [facility] May 01, 2016 RF [facility] Jun 10, 2016 Problems Problem Type Condition ICD-9 Code Onset Dates Condition Status Assessment GERD (gastroesophageal reflux disease) K21.9 Active Problem Pipe smoker F17.290 Active Problem Low testosterone E29.1 Active Problem Hypogonadism in male E29.1 Active Problem Vitamin D deficiency E55.9 Active Problem Essential hypertension I10 Active Problem Enlarged prostate N40.0 Active Problem H/O asbestosis Z87.09 Active Problem GERD (gastroesophageal reflux disease) K21.9 Active Problem History of ADHD Z86.59 Active Assessment Acute non-recurrent maxillary sinusitis J01.00 Active Assessment Essential hypertension I10 Active Assessment Cough R05 Active Medications Medication Code System Code Instructions Start Date End Date Status Dosage Viagra KleoSPAN [address]-72 100 MG Active TAKE 1 TABLET BY MOUTH EVERY DAY NEEDED Eszopiclone [facility] [address]-14 3 MG Orally once every night PRN Active 1 tablet Nexium [facility] 36969905188 40 MG Active TAKE ONE CAPSULE BY MOUTH EVERY DAY Baclofen [facility] [address]-16 10 MG/20ML Intrathecal Active Unknown Testosterone Cypionate [facility] [address]-99 200 MG/ML Intramuscular every 2 weeks Active 1 ml Meloxicam [facility] [address]-22 7.5 MG Orally Once a day Active 1 tablet Tamsulosin HCl [facility] [address]-51 0.4 MG Orally Active Unknown Bromfed DM [facility] [address]-33 30-2-10 MG/5ML Orally every 6 hrs Mar 25, 2015 Active 10 ml as needed Zantac [facility] 20207375237 300 MG Active TAKE 1 TABLET BY MOUTH AT BEDTIME Analpram-HC [facility] [address]-68 1-2.5 % Rectal Three times a day Active 1 application to affected area as needed Augmentin [facility] [address]-70 875-125 MG Orally every 12 hrs July 16, 2016 July 23, 2016 Active 1 tablet Co Q 10 [facility] 55145-11190 60 MG Orally Once a day Active 1 capsule with a meal Social History Social History Element Qualifiers Date Reported Last Bone Density: . not sure July 16, 2016 Last Colonoscopy: . 2013 July 16, 2016 children . 2 July 16, 2016 Tobacco Use: . Additional Findings: Tobacco User Pipe smoker July 16, 2016 Flu Vaccine: . no July 16, 2016 Use of recreational / street drugs? . Answer: No July 16, 2016 Do you have pets? . Status: Yes, Type: dog(s) July 16, 2016 Marital Status: . July 16, 2016 Caffeine intake? . Status: Yes, What type: Coffee, Tea, Soft Drinks July 16, 2016 Do you exercise? . Answer: Yes, Type: walking, running July 16, 2016 Do you drink alcohol? . Status: Yes, Type: Wine, Beer, Liquor, How often? Socially, How much? Socially July 16, 2016 Family history Qualifier Description Comment Date Reported Maternal Grandmother Comment not available July 16, 2016 Paternal Grandmother Comment not available July 16, 2016 Siblings Comment not available July 16, 2016 Maternal Grandfather Comment not available July 16, 2016 Children Comment not available July 16, 2016 Father Comment not available July 16, 2016 Paternal Grandfather Comment not available July 16, 2016 Mother Comment not available July 16, 2016 Other: Comment not available July 16, 2016 Vital Signs Date/Time: July 16, 2016 Weight 194 lbs Height 70 in Cardiac Monitoring Heart Rate 78 /min Blood Pressure Diastolic 78 mm Hg Blood Pressure Systolic 144 mm Hg Summary Purpose eClinicalWorks Submission
--- OUTSIDE RECORDS SUMMARY | 2018-07-25 10:40 | XMS REPORT ---
Author Author Clifton Nieto Organization eClinicalWorks Address Unknown Phone Unavailable Care Team Providers Care Meter Repairer Name Role Phone Clifton Nieto CP Unavailable Encounters Encounter Location Date SICK [facility] Mar 25, 2015 Refill [facility] Mar 28, 2015 Unknown [facility] Apr 10, 2015 PHYSICAL [facility] December 03, 2015 [employer]-foot pain [facility] October 11, 2014 Unknown [facility] November 01, 2014 PHYSICAL & Pre Op Clearance for foot surgery(Dr Ceballos) [facility] October 31, 2014 Unknown [facility] Mar 18, 2016 bump on the neck [facility] Mar 05, 2016 Unknown [facility] Mar 09, 2016 Unknown [facility] Jun 12, 2016 Refill [facility] May 01, 2016 RF [facility] Jun 10, [...] Start Date End Date Status D[facility] [address]-54 3 MG Orally once every night PRN [...]
--- OUTSIDE RECORDS SUMMARY | 2018-07-25 10:40 | XMS REPORT ---
Author Author Melanie Moreland Organization eClinicalWorks Address Unknown Phone Unavailable Care Team Providers Care Rn Licensed Practical Name Role Phone Melanie Moreland CP Unavailable Allergies, Adverse Reactions, Alerts Substance Reaction Event Type N.K.D.A. 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 not sure October 11, 2014 Flu Vaccine: . no October 11, 2014 Last Colonoscopy: . 2013 October 11, 2014 children . 2 October 11, 2014 Tobacco Use: . Additional Findings: Tobacco User Pipe smoker, Are you a: current smoker October 11, 2014 Use of recreational / street drugs? . Answer: No October 11, 2014 Marital Status: . October 11, 2014 Do you drink alcohol? . Status: Yes, Type: Wine, Beer, Liquor, How often? Socially, How much? Socially October 11, 2014 Vital Signs Date/Time: October 11, 2014 Weight 200 lbs Height 70 in Cardiac Monitoring Heart Rate 67 /min Blood Pressure Diastolic 64 mm Hg Blood Pressure Systolic 118 mm Hg Summary Purpose eClinicalWorks Submission
--- OUTSIDE RECORDS SUMMARY | 2018-07-25 10:40 | XMS REPORT ---
Author Author Clifton Nieto Organization eClinicalWorks Address Unknown Phone Unavailable Care Team Providers Care Waste Minimization Technician Name Role Phone Clifton Nieto CP Unavailable [...] Date End Date Status Dosage Eszopiclone [facility] [address]-04 3 MG Orally once every night PRN Active 1 tablet Results No Known Results Summary Purpose eClinicalWorks Submission
--- OUTSIDE RECORDS SUMMARY | 2018-07-25 10:40 | XMS REPORT ---
Author Author Clifton Nieto Organization eClinicalWorks Address Unknown Phone Unavailable Care Team Providers Care Marble Installation Helper Name Role Phone Clifton Nieto CP Unavailable [...] Start Date End Date Status Dosage Eszopiclone [facility] 2] 23250716891 3 MG Orally once every night PRN Active 1 tablet Results No Known Results Summary Purpose eClinicalWorks Submission
--- OUTSIDE RECORDS SUMMARY | 2018-07-25 10:40 | XMS REPORT ---
Author Author Clifton Nieto Organization eClinicalWorks Address Unknown Phone Unavailable Care Team Providers Care Ship Boat Or Barge Mate Name Role Phone Clifton Nieto CP Unavailable [...] Start Date End Date Status Dosage Dexilant [facility] [place]NOTE 2] 26910090017 60 MG Orally once a day Jan 25, 2018 Active 1 capsule Results No Known Results Summary Purpose eClinicalWorks Submission
[2018-07-25 15:00] VITALS: BP 124/65
--- NOTE | 2018-07-26 01:16 | Operative Report ---
DATE OF PROCEDURE: 07/25/2018 SURGEON: Dennis Fuentes MD PROCEDURE: EGD. INDICATIONS FOR EGD: Acid reflux, chronic cough, and weight loss. MEDICATIONS: The patient was done under MAC. Please see anesthesiologist's note. PROCEDURE IN DETAIL: With the patient in left decubitus position, flexible fiberoptic Olympus gastroscope was introduced into the esophagus under direct visualization without any difficulty. There was some patchy erythema noted in distal esophagus. A minute tongue of Green esophagus was noted, which was identified on an EGD in the recent past on biopsy. The scope was then advanced with ease into the stomach. Mucosa overlying the antrum and the body revealed some patchy areas of erythema. No biopsies were obtained as biopsies were obtained on that aforementioned EGD and the biopsies were negative for H pylori. Pylorus was of normal contour and shape, was intubated with ease and the scope was advanced all the way to the second portion of the duodenum. The scope was then withdrawn slowly. Mucosa overlying the proximal and second portion and duodenal bulb appeared to be within normal limits. The scope was then withdrawn back into the stomach and retroflexed. Mucosa overlying the fundus and cardia appeared to be within normal limits. The scope was then straightened out, it was subsequently withdrawn. The patient tolerated the procedure well. IMPRESSION: 1. Distal esophagitis. 2. Green esophagus. 3. Small sliding hiatal hernia. 4. Gastritis. PLAN: Continue Dexilant 60 mg one p.o. a.c. b.i.d. Add Reglan 10 mg before supper and at bedtime. Dennis Fuentes MD [facility] /[id number] cc: Melanie Moreland MD
== END | disposition home or self-care (01) ==
LOC: OR 10:35
PROVIDERS: ATTEND Internal Medicine Gastroenterology
DX: K22.70 Barrett's esophagus without dysplasia (principal); K21.9 Gastro-esophageal reflux disease without esophagitis; R13.10 Dysphagia, unspecified; K20.9 Esophagitis, unspecified; Z01.810 Encounter for preprocedural cardiovascular examination; Z01.812 Encounter for preprocedural laboratory examination; K44.9 Diaphragmatic hernia without obstruction or gangrene; K29.70 Gastritis, unspecified, without bleeding; R49.8 Other voice and resonance disorders; R07.0 Pain in throat; F41.9 Anxiety disorder, unspecified
CPT/HCPCS: 36415; 43235; 85025; 93005; J2250; J2704; J3490

== ENCOUNTER → 2020-12-25 | Day surgery (SDC) | payer MEDICARE ==
[2020-12-23 13:28] LABS: BASOPHILS # (AUTO) 0.1 (0.0-0.1); EOSINOPHILS # (AUTO) 0.3 (0.0-0.4); EOSINOPHILS % 3.9 % (0.0-6.0); HEMATOCRIT 41.9 % (38.2-49.6); HEMOGLOBIN 13.9 g/dL (14.0-18.0); LYMPHOCYTES % 24.3 % (18.0-39.1); MEAN CORPUSCULAR HEMOGLOBIN 31.2 pg (28-32); MEAN CORPUSCULAR HGB CONC 33.2 g/dL (31-35); MEAN CORPUSCULAR VOLUME 93.9 fL (81-99); MONOCYTES # (AUTO) 0.4 (0.2-0.8); MONOCYTES % 4.5 % (4.4-11.3); NEUTROPHILS # (AUTO) 5.4 (2.1-6.9); NEUTROPHILS % 65.9 % (38.7-80.0); PLATELET COUNT 232 x10e3/uL (140-360); RED BLOOD COUNT 4.46 x10e6/uL (4.3-5.7); RED CELL DISTRIBUTION WIDTH 12.9 % (11.7-14.4)
[~2020-12-25] MED LIST changes: -GLYCOPYRROLATE INJ 1MG/ 5 ML SYR ONE; +LIDOCAINE HCL 2% LOCAL INJ 5 ML SDV VIAL INJ ONE; +METOCLOPRAMIDE HCL 10 MG/2ML VIAL ONE; +PANTOPRAZOLE SO40 MG PO; +PROPOFOL IV EMULSION 10 MG/ML 20 ML VIAL ONE; -PROPOFOL IV EMULSION 10 MG/ML 50 ML VIAL ONE
[2020-12-25 08:30] VITALS: BP 117/76
== END | disposition home or self-care (01) ==
LOC: OR 05:53
PROVIDERS: ATTEND Internal Medicine Gastroenterology
DX: R13.19 Other dysphagia (principal); N40.0 Benign prostatic hyperplasia without lower urinary tract symptoms; K44.9 Diaphragmatic hernia without obstruction or gangrene; K29.70 Gastritis, unspecified, without bleeding; K20.90 Esophagitis, unspecified without bleeding; K21.9 Gastro-esophageal reflux disease without esophagitis; K31.7 Polyp of stomach and duodenum; Z87.442 Personal history of urinary calculi; Z01.810 Encounter for preprocedural cardiovascular examination; Z01.812 Encounter for preprocedural laboratory examination; Z20.822 Contact with and (suspected) exposure to COVID-19
CPT/HCPCS: 36415; 43239; 43450; 85025; 88305; 88312; 93005; C9113; J2001; J2250; J2704; J2765; J3010; U0002

== ENCOUNTER → 2022-01-01 | Day surgery (SDC) | payer MEDICARE ==
[2021-12-31 10:28] LABS: BASOPHILS # (AUTO) 0.1 (0.0-0.1); EOSINOPHILS # (AUTO) 0.2 (0.0-0.4); EOSINOPHILS % 2.8 % (0.0-6.0); HEMATOCRIT 41.7 % (38.2-49.6); HEMOGLOBIN 14.9 g/dL (14.0-18.0); LYMPHOCYTES % 33.4 % (18.0-39.1); MEAN CORPUSCULAR HEMOGLOBIN 33.6 pg (28-32); MEAN CORPUSCULAR HGB CONC 35.7 g/dL (31-35); MEAN CORPUSCULAR VOLUME 93.9 fL (81-99); MONOCYTES # (AUTO) 0.3 (0.2-0.8); MONOCYTES % 4.1 % (4.4-11.3); NEUTROPHILS # (AUTO) 3.5 (2.1-6.9); NEUTROPHILS % 58.4 % (38.7-80.0); PLATELET COUNT 204 x10e3/uL (140-360); RED BLOOD COUNT 4.44 x10e6/uL (4.3-5.7); RED CELL DISTRIBUTION WIDTH 12.6 % (11.7-14.4)
[~2022-01-01] MED LIST changes: +LOSARTAN POTASS25 MG PO
[2022-01-01 15:30] VITALS: BP 115/60
== END | disposition home or self-care (01) ==
LOC: OR 11:22
PROVIDERS: ATTEND Internal Medicine Gastroenterology
DX: K22.70 Barrett's esophagus without dysplasia (principal); D12.0 Benign neoplasm of cecum; D12.3 Benign neoplasm of transverse colon; D12.5 Benign neoplasm of sigmoid colon; K62.1 Rectal polyp; K31.7 Polyp of stomach and duodenum; K29.50 Unspecified chronic gastritis without bleeding; K21.9 Gastro-esophageal reflux disease without esophagitis; K44.9 Diaphragmatic hernia without obstruction or gangrene; K57.30 Diverticulosis of large intestine without perforation or abscess without bleeding; K64.8 Other hemorrhoids; Z71.3 Dietary counseling and surveillance; I10 Essential (primary) hypertension; Z88.8 Allergy status to other drugs, medicaments and biological substances; Z01.810 Encounter for preprocedural cardiovascular examination; Z01.812 Encounter for preprocedural laboratory examination; Z20.822 Contact with and (suspected) exposure to COVID-19; Z79.899 Other long term (current) drug therapy; Z68.26 Body mass index [BMI] 26.0-26.9, adult; Z87.891 Personal history of nicotine dependence
CPT/HCPCS: 0223U; 36415; 43239; 43450; 45380; 45385; 85025; 88304; 88305; 88312; 93005; C9113; J2001; J2250; J2704; J2765; J3010; 45378; 88342

== ENCOUNTER → 2023-12-17 | Day surgery (SDC) | payer MEDICARE ==
[2023-12-16 11:09] LABS: BASOPHILS # (AUTO) 0.1 (0.0-0.1); BASOPHILS % 0.8 % (0.0-1.0); EOSINOPHILS # (AUTO) 0.2 (0.0-0.4); EOSINOPHILS % 2.5 % (0.0-6.0); HEMATOCRIT 44.2 % (38.2-49.6); LYMPHOCYTES % 24.9 % (18.0-39.1); MEAN CORPUSCULAR HEMOGLOBIN 33.1 pg (28-32); MEAN CORPUSCULAR HGB CONC 33.9 g/dL (31-35); MEAN CORPUSCULAR VOLUME 97.6 fL (81-99); MONOCYTES # (AUTO) 0.5 (0.2-0.8); NEUTROPHILS # (AUTO) 5.2 (2.1-6.9); NEUTROPHILS % 65.4 % (38.7-80.0); PLATELET COUNT 173 x10e3/uL (140-360); RED BLOOD COUNT 4.53 x10e6/uL (4.3-5.7); RED CELL DISTRIBUTION WIDTH 12.6 % (11.7-14.4); WHITE BLOOD COUNT 7.87 x10e3/uL (4.8-10.8)
[~2023-12-17] MED LIST changes: -FENTANYL CITRATE/PF 100MCG/2 ML INJ ONE; +LACTATED RINGER'S 1,000 ML ONE; -LIDOCAINE HCL 2% LOCAL INJ 5 ML SDV VIAL INJ ONE; -METOCLOPRAMIDE HCL 10 MG/2ML VIAL ONE; -MIDAZOLAM HCL 2 MG/2 ML VIAL ONE; -PROPOFOL IV EMULSION 10 MG/ML 20 ML VIAL ONE; +PROPOFOL IV EMULSION 50 ML IV ONE
[2023-12-17 16:29] VITALS: TEMP 97.3
[2023-12-17 16:45] VITALS: BP 117/82; PULSE 55; RESP 16; O2SAT 98
== END | disposition home or self-care (01) ==
LOC: ENDO 13:12
PROVIDERS: ATTEND Internal Medicine Gastroenterology
DX: K22.70 Barrett's esophagus without dysplasia (principal); K29.70 Gastritis, unspecified, without bleeding; K31.89 Other diseases of stomach and duodenum; K44.9 Diaphragmatic hernia without obstruction or gangrene; K21.9 Gastro-esophageal reflux disease without esophagitis; Z71.3 Dietary counseling and surveillance; I10 Essential (primary) hypertension; G89.29 Other chronic pain; Z88.8 Allergy status to other drugs, medicaments and biological substances; Z01.810 Encounter for preprocedural cardiovascular examination; Z01.812 Encounter for preprocedural laboratory examination; Z79.1 Long term (current) use of non-steroidal anti-inflammatories (NSAID); Z79.899 Other long term (current) drug therapy; Z86.16 Personal history of COVID-19
CPT/HCPCS: 36415; 43239; 43450; 85025; 93005; J2470; J2704; J7121